=== PATIENT | male | born 1945 | race Caucasian/White ===

== ENCOUNTER 2017-08-30 21:44 | Inpatient (IN) | payer MEDICARE ==
[~2017-08-30] VITALS: Ht 170.2 cm; Wt 85.3 kg
--- OUTSIDE RECORDS SUMMARY | 2017-08-30 21:47 | XMS REPORT | Clinical Summary ---
Author Author MEGAN [facility] Address Unknown Phone Unavailable Care Team Providers Care Certified Juvenile Probation Officer Name Role Phone PCP Unavailable Allergies No Known Allergies Current Medications Prescription Sig. Disp. Refills Start End Date Status Date lisinopril Take 1 tablet (30 mg 30 tablet 11 06/29/19 06/29/19 Active (PRINIVIL,ZESTRIL) 30 MG total) by mouth daily. 18 19 tablet insulin detemir (LEVEMIR) Inject 0.3 mLs (30 Units 1 packet 0 Active 100 unit/mL (3 mL) InPn total) subcutaneously 18 injection nightly. Active Problems Problem Noted Date UTI (urinary tract infection) 06/25/2017 Altered mental status, unspecified altered mental status type 06/25/2017 Encounters Date Type Specialty Care Team Description 06/25/2017 [facility] Darrell Alexandre MD Altered mental status, - Encounter Tommy Lombardo MD unspecified altered 06/28/2017 mental status type (Primary Dx);Urinary tract infection with hematuria, site unspecified;Metabolic acidosis;Elevated blood pressure reading after 08/29/2016 Social History Tobacco Use Types Packs/Day Years Used Date Unknown If Ever Smoked Smokeless Tobacco: Current User Sex Assigned at Date Recorded Not on file Last Filed Vital Signs Vital Sign Reading Time Taken Blood Pressure 137/64 06/28/2017 8:00 AM VIDEO PRODUCTION COORDINATOR Pulse 84 06/28/2017 8:00 AM VIDEO PRODUCTION COORDINATOR Temperature 37.1 C (98.8 F) 06/28/2017 8:00 AM VIDEO PRODUCTION COORDINATOR Respiratory Rate 18 06/28/2017 8:00 AM VIDEO PRODUCTION COORDINATOR Oxygen Saturation 98% 06/28/2017 8:00 AM VIDEO PRODUCTION COORDINATOR Inhaled Oxygen - - Concentration Weight 77.1 kg (170 lb) 06/25/2017 7:49 AM VIDEO PRODUCTION COORDINATOR Height 170.2 cm (5' 7") 06/25/2017 7:49 AM VIDEO PRODUCTION COORDINATOR Body Mass Index 26.63 06/25/2017 7:49 AM VIDEO PRODUCTION COORDINATOR Plan of Treatment Not on file Results * RHYTHM STRIP - SCAN (07/01/2017 2:31 PM) * CBC with platelet count + automated diff (06/28/2017 7:21 AM) Only the most recent of 4 results within the time period is included. Component Value Ref Range WBC 4.4 4.0 - 10.0 K/ L RBC 3.43 (L) 4.20 - 5.80 M/ L Hemoglobin 10.3 (L) 13.0 - 16.8 GM/DL Hematocrit 30.5 (L) 40.0 - 50.0 % MCV 88.9 82.0 - 98.0 fL MCH 29.9 27.0 - 33.0 pg MCHC 33.6 32.0 - 36.0 GM/DL RDW 17.2 (H) 10.3 - 14.2 % Platelets 96 (L) 150 - 430 K/CU MM MPV 7.4 6.5 - 10.5 fL nRBC 0 0 - 0 /100 WBC % Neutros 59 % % Lymphs 22 % % Monos 12 % % Eos 6 % % Baso 1 % # Neutros 2.60 1.80 - 8.00 K/ L # Lymphs 1.00 (L) 1.48 - 4.50 K/ L # Monos 0.50 0.00 - 1.30 K/ L # Eos 0.20 0.00 - 0.50 K/ L # Baso 0.00 0.00 - 0.20 K/ L Specimen Performing Laboratory Blood [facility] [address] [place] [id number] * CBC with platelet count + automated diff (06/28/2017 7:21 AM) Only the most recent of 4 results within the time period is included. Specimen Performing Laboratory Blood Narrative The following orders were created for panel order CBC with platelet count + automated diff. Procedure Abnormality Status --------- - ------ CBC with platelet count ...[[id number]]AbnormalFinal result Please view results for these tests on the individual orders. * Basic Metabolic Panel (06/28/2017 7:21 AM) Only the most recent of 5 results within the time period is included. Component Value Ref Range Sodium 134 (L) 135 - 148 meq/L Potassium 3.6 3.6 - 5.5 meq/L Chloride 104 98 - 106 meq/L CO2 22 20 - 29 meq/L BUN 10 10 - 26 mg/dL Creatinine 0.80 0.50 - 1.20 mg/dL Glucose 239 (H) 70 - 110 mg/dL Calcium 8.1 (L) 8.5 - 10.5 mg/dL EGFR 96Comment: ESTIMATED GFR IS NOT ACCURATE mL/min/1.73 sq m CREATININE CLEARANCE IN PREDICTING GLOMERULAR FILTRATION RATE. ESTIMATED GFR IS NOT APPLICABLE FOR DIALYSIS PATIENTS. Specimen Performing Laboratory Blood [facility] [address] [place] [id number] * POC-Glucose meter (06/28/2017 5:55 AM) Only the most recent of 13 results within the time period is included. Component Value Ref Range POC-Glucose Meter 265 (H)Comment: TESTED AT [facility] [address] [facility] 70 - 110 mg/dL [facility] [address] Specimen Performing Laboratory [place] [address] * ED ECG Interpretation (06/26/2017 12:11 PM) Narrative Darrell Alexandre MD 06/26/2017 12:11 PM ECG/EKG Interpretation Date/Time: 06/25/2017 9:00 AM Performed by: DARRELL ALEXANDRE Authorized by: DARRELL ALEXANDRE The ECG was interpreted by ED physician. This ECG was not compared with previous ECG(s).The ECG is interpreted as sinus rhythm. Rate is normal rate. Heart rate is 93 BPM. Clinical Impression: non-specific ECGComments: NSR, NML AXIS, WIDE QRS, RBBB, LAFB * TSH/Free T4 If Indicated (06/26/2017 4:34 AM) Component Value Ref Range TSH 1.20 0.35 - 5.50 uIU/mL Specimen Performing Laboratory Blood [facility] [address] [place] [address] * Hemoglobin A1c (06/26/2017 4:34 AM) Component Value Ref Range Hemoglobin A1C 10.4 (H) 4.3 - 6.1 % Specimen Performing Laboratory [facility] [address] [place] [id number] * Lipid panel (06/26/2017 4:34 AM) Component Value Ref Range Triglycerides 92 mg/dL Cholesterol 156 mg/dL HDL 41 mg/dL LDL Calculated 97 mg/dL Specimen Performing Laboratory Blood [facility] [address] [place], [place] [id number] Narrative Triglyceride Reference Range: Low Risk <150 [id number] High Risk 200-499 Very High Risk>=500 Cholesterol Reference Range: Low Risk <200 [id number] High Risk>240 HDL Cholesterol Reference Range: Low Risk >=60 High Risk <40 LDL Cholesterol Reference Range: Optimal<100 Near [id number] [id number] Vvvt817-121 Very High >=190 Specimen slightly icteric * Urine culture (06/25/2017 9:51 AM) Component Value Ref Range Result Result 10-19,000 col/mL Beta-hemolytic streptococcus group B, by serological grouping (A) Specimen Performing Laboratory Urine - Urine, [facility] [address] [place] [address] Narrative >100,000 col/mL skin laura * Rapid drug screen, urine (06/25/2017 9:17 AM) Component Value Ref Range Barbiturate Screen Negative Negative Benzodiazepine Screen Negative Negative Cocaine (Metab.) Screen Negative Negative Methadone Screen Negative Negative Opiate Screen Negative Negative Cannabinoid Screen Negative Negative Amph/Methamph Screen Negative Negative Phencyclidine Screen Negative Negative Specimen Performing Laboratory Urine - Urine, [facility] [address] [address] [place] [address] Narrative DRUGCUTOFF CONC. Cocaine 300 ng/mL Vziwgrxpbnl24 ng/mL Htppwsfopwobap195 ng/mL Barbiturate 200 ng/mL Rulfaurkzmghe54 ng/mL Nzamgb047 ng/mL Methadone 300 ng/mL Amphetamine/ 1000 ng/mL Methamphetamine This assay provides an unconfirmed qualitative test result for the clinical management of patients in emergency situations. Chain of custody not maintained. Some vfgk-zll-egputjd medications, as well as adulterants, may cause inaccurate results. Clinical correlation should be applied. A more comprehensive drug screen or confirmation of a detected drug may be performed upon request. * Urinalysis w/Microscopic (06/25/2017 9:17 AM) Component Value Ref Range Color, UA Yellow Clarity, UA Cloudy Specific [place], UA 1.015 1.001 - 1.035 pH, UA 7.5 5.0 - 8.0 Protein, UA Trace (A) Negative Glucose, UA >=1000 mg/dL (A) Negative Ketones, UA Trace (A) Negative Bilirubin, UA Negative Negative Blood, UA Moderate (A) Negative Nitrite, UA Negative Negative Leukocytes, UA Small (A) Negative Urobilinogen, UA 0.2 0.2 - 1.0 mg/dL Bacteria, UA Many RBC, UA 10-20 /HPF WBC, UA 10-20 /HPF SQUAMOUS EPITHELIAL 5-10 /HPF Specimen Source Specimen Performing Laboratory Urine - Urine, Clean [facility] [address] [place] [address] * CT brain without IV contrast (06/25/2017 9:08 AM) Specimen Performing Laboratory GE RIS Narrative FINAL REPORT CT head without contrast 06/25/2017 9:12 AM CLINICAL HISTORY: confusion confusion TECHNIQUE: Axial noncontrast CT images through the head were obtained. This examination was performed according to our departmental dose optimization program, which includes automated exposure control, adjustment of the mA and/or kV according to patient size, and/or use of iterated reconstruction technique. COMPARISON: None available FINDINGS: There is no hemorrhage, extra-axial collection, mass, hydrocephalus, or midline shift. There is mild microvascular ischemia in the supratentorial white matter, with a right anterior striatocapsular infarct. There is atherosclerotic calcification of the intracranial arterial vasculature. There is generalized parenchymal volume loss. The visualized paranasal sinuses and mastoid air cells are well aerated. The skull is intact. IMPRESSION: No intracranial hemorrhage or mass effect. Chronic appearing microvascular and involutional changes. If concern for acute pathology persists, further evaluation with MRI is recommended. Signed: Mir Hernandez MD Report Verified Date/Time:06/25/2017 09:14:38 Reading Location: [facility] Radiology Reading Room Procedure Note Interface, External Ris In - 06/25/2017 9:16 AM VIDEO PRODUCTION COORDINATOR FINAL REPORT CT head without contrast 06/25/2017 9:12 AM CLINICAL HISTORY: confusion confusion TECHNIQUE: Axial noncontrast CT images through the head were obtained. This examination was performed according to our departmental dose optimization program, which includes automated exposure control, adjustment of the mA and/or kV according to patient size, and/or use of iterated reconstruction technique. COMPARISON: None available FINDINGS: There is no hemorrhage, extra-axial collection, mass, hydrocephalus, or midline shift. There is mild microvascular ischemia in the supratentorial white matter, with a right anterior striatocapsular infarct. There is atherosclerotic calcification of the intracranial arterial vasculature. There is generalized parenchymal volume loss. The visualized paranasal sinuses and mastoid air cells are well aerated. The skull is intact. IMPRESSION: No intracranial hemorrhage or mass effect. Chronic appearing microvascular and involutional changes. If concern for acute pathology persists, further evaluation with MRI is recommended. Signed: Mir Hernandez MD Report Verified Date/Time: 06/25/2017 09:14:38 Reading Location: [facility] Radiology Reading Room * XR chest 1 view portable / bedside (06/25/2017 8:06 AM) Specimen Performing Laboratory GE RIS Narrative FINAL REPORT Chest one view AP 06/25/2017 8:11 AM CLINICAL INDICATION: confusion COMPARISON: None available IMPRESSION: Cardiomediastinal contours are within normal limits. The central pulmonary vasculature is not engorged. The lungs are well aerated. Signed: Mir Hernandez MD Report Verified Date/Time:06/25/2017 08:11:55 Reading Location: [facility] Reading Room Procedure Note Interface, External Ris In - 06/25/2017 8:14 AM VIDEO PRODUCTION COORDINATOR FINAL REPORT Chest one view AP 06/25/2017 8:11 AM CLINICAL INDICATION: confusion COMPARISON: None available IMPRESSION: Cardiomediastinal contours are within normal limits. The central pulmonary vasculature is not engorged. The lungs are well aerated. Signed: Mir Hernandez MD Report Verified Date/Time: 06/25/2017 08:11:55 Reading Location: [facility] Radiology Reading Room * Troponin I (06/25/2017 8:00 AM) Component Value Ref Range Troponin I 0.03 0.00 - 0.15 ng/mL Specimen Performing Laboratory [facility] [address] [place] [address] Narrative Troponin I (TnI) levels must be interpreted in the context of the presenting symptoms and the clinical findings. Elevated TnI levels indicate myocardial damage, but are not specific for ischemic heart disease. Elevated TnI levels are seen in patients with other cardiac conditions (including myocarditis and congestive heart failure), and slight TnI elevations occur in patients with other conditions, including sepsis, renal failure, acidosis, acute neurological disease, and persistent tachyarrhythmia. * Creatine Kinase (CK), Total and MB (06/25/2017 8:00 AM) Component Value Ref Range Total CK 76 40 - 250 U/L CK-MB 2.3 0.0 - 4.9 ng/mL MB Relative Index 3.0 % Specimen Performing Laboratory [facility] [address] [place] [address] Narrative CK-MB Reference Range: <5 Normal 5-10 Borderline >10Abnormal * Ethanol (06/25/2017 8:00 AM) Component Value Ref Range Ethanol Lvl 38 (H) <=10 mg/dL Specimen Performing Laboratory [facility] [address] [place] [address] after 08/29/2016
--- OUTSIDE RECORDS SUMMARY | 2017-08-30 21:47 | XMS REPORT ---
Author Author [facility] Address Unknown Phone Unavailable Care Team Providers Care Activity Director Name Role Phone UNKNOWN, REFFERING PP Unavailable BOSS, MARIELENA Unavailable Unavailable SHAINA, PANCHITO Unavailable Unavailable Problems This patient has no known problems. Allergies, Adverse Reactions, Alerts This patient has no known allergies or adverse reactions. Medications This patient has no known medications. Results Test Description Test Time Test Comments Text Results Atomic Results Result Comments CBC W/PLT COUNT & AUTO DIFFERENTIAL 2017-06-28 08:47:00 WHITE BLOOD CELL COUNT (BEAKER) (test wdum=622) 4.4 K/ L 4.0-10.0 RED BLOOD CELL COUNT (BEAKER) (test fkwe=429) 3.43 M/ L 4.20-5.80 HEMOGLOBIN (BEAKER) (test tjvt=670) 10.3 GM/DL 13.0-16.8 HEMATOCRIT (BEAKER) (test bztd=846) 30.5 % 40.0-50.0 MEAN CORPUSCULAR VOLUME (BEAKER) (test hkjy=982) 88.9 fL 82.0-98.0 MEAN CORPUSCULAR HEMOGLOBIN (BEAKER) (test parl=155) 29.9 pg 27.0-33.0 MEAN CORPUSCULAR HEMOGLOBIN CONC (BEAKER) (test arzm=270) 33.6 GM/DL 32.0- 36.0 RED CELL DISTRIBUTION WIDTH (BEAKER) (test lvjy=397) 17.2 % 10.3-14.2 PLATELET COUNT (BEAKER) (test oolc=806) 96 K/CU MM 150-430 MEAN PLATELET VOLUME (BEAKER) (test ujxd=978) 7.4 fL 6.5-10.5 NUCLEATED RED BLOOD CELLS (BEAKER) (test gisq=106) 0 /100 WBC 0-0 NEUTROPHILS RELATIVE PERCENT (BEAKER) (test xnpt=401) 59 % LYMPHOCYTES RELATIVE PERCENT (BEAKER) (test kcit=790) 22 % MONOCYTES RELATIVE PERCENT (BEAKER) (test mnwm=778) 12 % EOSINOPHILS RELATIVE PERCENT (BEAKER) (test orem=925) 6 % BASOPHILS RELATIVE PERCENT (BEAKER) (test chpt=693) 1 % NEUTROPHILS ABSOLUTE COUNT (BEAKER) (test wogc=345) 2.60 K/ L 1.80-8.00 LYMPHOCYTES ABSOLUTE COUNT (BEAKER) (test pacg=788) 1.00 K/ L 1.48-4.50 MONOCYTES ABSOLUTE COUNT (BEAKER) (test difn=767) 0.50 K/ L 0.00-1.30 EOSINOPHILS ABSOLUTE COUNT (BEAKER) (test bqbc=457) 0.20 K/ L 0.00-0.50 BASOPHILS ABSOLUTE COUNT (BEAKER) (test peor=294) 0.00 K/ L 0.00-0.20 BASIC METABOLIC [id number] 07:49:00* Test Item Value Reference Range Comments SODIUM (BEAKER) (test knav=862) 134 meq/L 135-148 POTASSIUM (BEAKER) (test vims=108) 3.6 meq/L 3.6-5.5 CHLORIDE (BEAKER) (test efoi=643) 104 meq/L 98-106 CO2 (BEAKER) (test yfba=205) 22 meq/L 20-29 BLOOD UREA NITROGEN (BEAKER) (test ggdj=130) 10 mg/dL 10-26 CREATININE (BEAKER) (test duho=971) 0.80 mg/dL 0.50-1.20 GLUCOSE RANDOM (BEAKER) (test tppr=848) 239 mg/dL 70-110 CALCIUM (BEAKER) (test yvwx=141) 8.1 mg/dL 8.5-10.5 EGFR (BEAKER) (test cucm=1925) 96 mL/min/1.73 sq m ESTIMATED GFR IS NOT ACCURATE CREATININE CLEARANCE IN PREDICTING GLOMERULAR FILTRATION RATE. ESTIMATED GFR IS NOT APPLICABLE FOR DIALYSIS PATIENTS. POCT-GLUCOSE [id number] 06:00:00* Test Item Value Reference Range Comments POC-GLUCOSE METER (BEAKER) (test ahsn=7396) 265 mg/dL 70-110 TESTED AT [facility] [address] [place] [address] POCT-GLUCOSE [id number] 20:57:00* Test Item Value Reference Range Comments POC-GLUCOSE METER (BEAKER) (test kewn=9444) 365 mg/dL 70-110 Notified ZEESHAN ANDERSEN/ TESTED AT [facility] [address] [facility] [address] POCT-GLUCOSE [id number] 16:59:00* Test Item Value Reference Range Comments POC-GLUCOSE METER (BEAKER) (test xaas=1532) 374 mg/dL 70-110 TESTED AT [facility] [address] [facility] [address] URINE [id number] 12:44:00* Test Item Value Reference Range Comments CULTURE (BEAKER) (test nbfx=2301) 10-19,000 col/mL Beta-hemolytic streptococcus group B, by serological grouping >100,000 col/mL skin floraPOCT-GLUCOSE [id number] 11:54:00* Test Item Value Reference Range Comments POC-GLUCOSE METER (BEAKER) (test geuo=2712) 265 mg/dL 70-110 TESTED AT [facility] [address] [facility] [address] BASIC METABOLIC [id number] 07:51:00* Test Item Value Reference Range Comments SODIUM (BEAKER) (test mbwq=882) 135 meq/L 135-148 POTASSIUM (BEAKER) (test wgty=217) 3.5 meq/L 3.6-5.5 CHLORIDE (BEAKER) (test gnlh=619) 104 meq/L 98-106 CO2 (BEAKER) (test kwzw=911) 22 meq/L 20-29 BLOOD UREA NITROGEN (BEAKER) (test zzwp=967) 10 mg/dL 10-26 CREATININE (BEAKER) (test ogbg=556) 0.80 mg/dL 0.50-1.20 GLUCOSE RANDOM (BEAKER) (test gppe=337) 274 mg/dL 70-110 CALCIUM (BEAKER) (test hjut=196) 8.3 mg/dL 8.5-10.5 EGFR (BEAKER) (test qpod=6525) 96 mL/min/1.73 sq m ESTIMATED GFR IS NOT ACCURATE CREATININE CLEARANCE IN PREDICTING GLOMERULAR FILTRATION RATE. ESTIMATED GFR IS NOT APPLICABLE FOR DIALYSIS PATIENTS. Specimen slightly ictericCBC W/PLT COUNT & AUTO [id number] 07:43:00 * Test Item Value Reference Range Comments WHITE BLOOD CELL COUNT (BEAKER) (test pqya=316) 4.4 K/ L 4.0-10.0 RED BLOOD CELL COUNT (BEAKER) (test ozgb=019) 3.52 M/ L 4.20-5.80 HEMOGLOBIN (BEAKER) (test arud=493) 10.7 GM/DL 13.0-16.8 HEMATOCRIT (BEAKER) (test mzbs=969) 31.5 % 40.0-50.0 MEAN CORPUSCULAR VOLUME (BEAKER) (test erly=645) 89.5 fL 82.0-98.0 MEAN CORPUSCULAR HEMOGLOBIN (BEAKER) (test awlx=710) 30.4 pg 27.0-33.0 MEAN CORPUSCULAR HEMOGLOBIN CONC (BEAKER) (test bnmv=750) 33.9 GM/DL 32.0- 36.0 RED CELL DISTRIBUTION WIDTH (BEAKER) (test zvze=226) 16.8 % 10.3-14.2 PLATELET COUNT (BEAKER) (test axnr=029) 86 K/CU MM 150-430 MEAN PLATELET VOLUME (BEAKER) (test jkwi=994) 7.9 fL 6.5-10.5 NUCLEATED RED BLOOD CELLS (BEAKER) (test csuo=217) 0 /100 WBC 0-0 NEUTROPHILS RELATIVE PERCENT (BEAKER) (test moml=157) 63 % LYMPHOCYTES RELATIVE PERCENT (BEAKER) (test dbob=937) 19 % MONOCYTES RELATIVE PERCENT (BEAKER) (test ystd=866) 12 % EOSINOPHILS RELATIVE PERCENT (BEAKER) (test nizp=937) 6 % BASOPHILS RELATIVE PERCENT (BEAKER) (test jbxv=920) 1 % NEUTROPHILS ABSOLUTE COUNT (BEAKER) (test qizc=838) 2.80 K/ L 1.80-8.00 LYMPHOCYTES ABSOLUTE COUNT (BEAKER) (test yfwe=739) 0.90 K/ L 1.48-4.50 MONOCYTES ABSOLUTE COUNT (BEAKER) (test pnaf=503) 0.50 K/ L 0.00-1.30 EOSINOPHILS ABSOLUTE COUNT (BEAKER) (test jpce=790) 0.30 K/ L 0.00-0.50 BASOPHILS ABSOLUTE COUNT (BEAKER) (test etko=566) 0.00 K/ L 0.00-0.20 POCT-GLUCOSE [id number] 05:58:00* Test Item Value Reference Range Comments POC-GLUCOSE METER (BEAKER) (test yayf=1394) 273 mg/dL 70-110 TESTED AT [facility] [address] [facility] [address] POCT-GLUCOSE [id number] 21:02:00* Test Item Value Reference Range Comments POC-GLUCOSE METER (BEAKER) (test wxxq=8150) 404 mg/dL 70-110 Notified ZEESHAN ANDERSEN/ TESTED AT [address] [address] POCT-GLUCOSE [id number] 16:50:00* Test Item Value Reference Range Comments POC-GLUCOSE METER (BEAKER) (test egpk=0268) 409 mg/dL 70-110 TESTED AT [address] [address] POCT-GLUCOSE [id number] 12:28:00* Test Item Value Reference Range Comments POC-GLUCOSE METER (BEAKER) (test tmug=0914) 305 mg/dL 70-110 TESTED AT [address] [address] POCT-GLUCOSE [id number] 06:21:00* Test Item Value Reference Range Comments POC-GLUCOSE METER (BEAKER) (test dlri=3248) 275 mg/dL 70-110 TESTED AT [address] [address] TSH/FREE T4 IF [id number] 05:23:00* Test Item Value Reference Range Comments THYROID STIMULATING HORMONE (BEAKER) (test utes=010) 1.20 uIU/mL 0.35-5.50 LIPID [id number] 05:04:00* Test Item Value Reference Range Comments TRIGLYCERIDES (BEAKER) (test ufrn=637) 92 mg/dL CHOLESTEROL (BEAKER) (test wwsw=028) 156 mg/dL HDL CHOLESTEROL (BEAKER) (test unly=981) 41 mg/dL LDL CHOLESTEROL CALCULATED (AKER) (test lhsx=472) 97 mg/dL Triglyceride Reference Range: Low Risk <150 Borderline 150-199 High Risk 200-499 Very High Risk >=500Cholesterol Reference Range: Low Risk <200 Borderline 200-239 High Risk >240HDL Cholesterol Reference Range: Low Risk >=60 High Risk <40LDL Cholesterol Reference Range: Optimal <100 Near Optimal 100-129 Borderline 130-159 High 160-189 Very High >=190 Specimen slightly ictericBASIC METABOLIC [id number] 05:04:00* Test Item Value Reference Range Comments SODIUM (BEAKER) (test zttk=148) 136 meq/L 135-148 POTASSIUM (BEAKER) (test qdsk=881) 3.4 meq/L 3.6-5.5 CHLORIDE (BEAKER) (test hmyo=372) 104 meq/L 98-106 CO2 (BEAKER) (test icba=771) 21 meq/L 20-29 BLOOD UREA NITROGEN (BEAKER) (test cbtr=938) 10 mg/dL 10-26 CREATININE (BEAKER) (test ctim=325) 0.90 mg/dL 0.50-1.20 GLUCOSE RANDOM (BEAKER) (test tlxi=083) 280 mg/dL 70-110 CALCIUM (BEAKER) (test qqhl=739) 8.2 mg/dL 8.5-10.5 EGFR (BEAKER) (test geyi=2362) 83 mL/min/1.73 sq m ESTIMATED GFR IS NOT ACCURATE CREATININE CLEARANCE IN PREDICTING GLOMERULAR FILTRATION RATE. ESTIMATED GFR IS NOT APPLICABLE FOR DIALYSIS PATIENTS. Specimen slightly ictericHEMOGLOBIN [id number] 04:56:00* Test Item Value Reference Range Comments HEMOGLOBIN A1C (BEAKER) (test zecu=048) 10.4 % 4.3-6.1 CBC W/PLT COUNT & AUTO [id number] 04:44:00* Test Item Value Reference Range Comments WHITE BLOOD CELL COUNT (BEAKER) (test lwxj=503) 4.7 K/ L 4.0-10.0 RED BLOOD CELL COUNT (BEAKER) (test wszb=557) 3.57 M/ L 4.20-5.80 HEMOGLOBIN (BEAKER) (test gfpf=130) 10.8 GM/DL 13.0-16.8 HEMATOCRIT (BEAKER) (test mdsm=078) 32.1 % 40.0-50.0 MEAN CORPUSCULAR VOLUME (BEAKER) (test omnf=727) 90.0 fL 82.0-98.0 MEAN CORPUSCULAR HEMOGLOBIN (BEAKER) (test puma=857) 30.2 pg 27.0-33.0 MEAN CORPUSCULAR HEMOGLOBIN CONC (BEAKER) (test pzbd=598) 33.5 GM/DL 32.0- 36.0 RED CELL DISTRIBUTION WIDTH (BEAKER) (test ifiu=606) 16.5 % 10.3-14.2 PLATELET COUNT (BEAKER) (test yujm=476) 86 K/CU MM 150-430 MEAN PLATELET VOLUME (BEAKER) (test xakg=864) 8.2 fL 6.5-10.5 NUCLEATED RED BLOOD CELLS (BEAKER) (test olel=036) 0 /100 WBC 0-0 NEUTROPHILS RELATIVE PERCENT (BEAKER) (test wpuf=661) 62 % LYMPHOCYTES RELATIVE PERCENT (BEAKER) (test vxey=515) 20 % MONOCYTES RELATIVE PERCENT (BEAKER) (test mkae=158) 11 % EOSINOPHILS RELATIVE PERCENT (BEAKER) (test ecas=458) 6 % BASOPHILS RELATIVE PERCENT (BEAKER) (test xnmr=516) 1 % NEUTROPHILS ABSOLUTE COUNT (BEAKER) (test jarx=535) 3.00 K/ L 1.80-8.00 LYMPHOCYTES ABSOLUTE COUNT (BEAKER) (test zlwn=819) 1.00 K/ L 1.48-4.50 MONOCYTES ABSOLUTE COUNT (BEAKER) (test rvia=059) 0.50 K/ L 0.00-1.30 EOSINOPHILS ABSOLUTE COUNT (BEAKER) (test jlwt=113) 0.30 K/ L 0.00-0.50 BASOPHILS ABSOLUTE COUNT (BEAKER) (test glso=745) 0.00 K/ L 0.00-0.20 POCT-GLUCOSE [id number] 20:54:00* Test Item Value Reference Range Comments POC-GLUCOSE METER (BEAKER) (test ynug=9211) 399 mg/dL 70-110 TESTED AT [address] [address] POCT-GLUCOSE [id number] 16:42:00* Test Item Value Reference Range Comments POC-GLUCOSE METER (BEAKER) (test vntu=3842) 330 mg/dL 70-110 TESTED AT [address] [address] BASIC METABOLIC [id number] 11:24:00* Test Item Value Reference Range Comments SODIUM (BEAKER) (test ujac=826) 133 meq/L 135-148 POTASSIUM (BEAKER) (test elno=898) 3.6 meq/L 3.6-5.5 CHLORIDE (BEAKER) (test xhqx=196) 103 meq/L 98-106 CO2 (BEAKER) (test mvkl=103) 21 meq/L 20-29 BLOOD UREA NITROGEN (BEAKER) (test gjik=735) 10 mg/dL 10-26 CREATININE (BEAKER) (test kyie=099) 0.90 mg/dL 0.50-1.20 GLUCOSE RANDOM (BEAKER) (test sacy=670) 342 mg/dL 70-110 CALCIUM (BEAKER) (test ukxk=325) 8.2 mg/dL 8.5-10.5 EGFR (BEAKER) (test egrd=4598) mL/min/1.73 sq m INSUFFICIENT CLINICAL DATA TO CALCULATE ESTIMATED GFR. POCT-GLUCOSE [id number] 10:49:00* Test Item Value Reference Range Comments POC-GLUCOSE METER (BEAKER) (test plao=7560) 340 mg/dL 70-110 TESTED AT [facility] [address] [place] [address] RAPID DRUG SCREEN, [id number] 10:00:00* Test Item Value Reference Range Comments BARBITURATE URINE (BEAKER) (test tzoc=492) Negative Negative BENZODIAZEPINE SCREEN URINE (BEAKER) (test labl=778) Negative Negative COCAINE (METAB.) SCREEN (BEAKER) (test yqos=2113) Negative Negative METHADONE SCREEN (BEAKER) (test lmfm=7285) Negative Negative OPIATE SCREEN URINE (BEAKER) (test vqbo=802) Negative Negative CANNABINOID SCREEN URINE (BEAKER) (test ecix=501) Negative Negative AMPH/METHAMPH SCREEN (BEAKER) (test qnml=1476) Negative Negative PHENCYCLIDINE SCREEN URINE (BEAKER) (test zgyp=221) Negative Negative DRUG CUTOFF CONC.Cocaine 300 ng/mL Cannabinoid 50 ng/mLBenzodiazepine 200 ng/mLBarbiturate 200 ng/ mLPhencyclidine 25 ng/mLOpiate 300 ng/mLMethadone 300 ng/mLAmphetamine/ 1000 ng/mL MethamphetamineThis assay provides an unconfirmed qualitative test result for the clinical management of patients in emergency situations. Chain of custody not maintained. Some over-the -counter medications, as well as adulterants, may cause inaccurate results. Clinical correlation should be applied. A more comprehensive drug screen or confirmation of a detected drug may be performed upon request.URINALYSIS W/ [id number] 09:42:00* Test Item Value Reference Range Comments COLOR (BEAKER) (test mqyi=599) Yellow CLARITY (BEAKER) (test rdam=799) Cloudy SPECIFIC GRAVITY UA (BEAKER) (test txgr=531) 1.015 1.001-1.035 PH UA (BEAKER) (test iisr=816) 7.5 5.0-8.0 PROTEIN UA (BEAKER) (test hhgq=429) Trace Negative GLUCOSE UA (BEAKER) (test agjc=035) >=1000 mg/dL Negative KETONES UA (BEAKER) (test xdhk=903) Trace Negative BILIRUBIN UA (BEAKER) (test viij=536) Negative Negative BLOOD UA (BEAKER) (test vfpy=355) Moderate Negative NITRITE UA (BEAKER) (test flln=968) Negative Negative LEUKOCYTE ESTERASE UA (BEAKER) (test fcal=359) Small Negative UROBILINOGEN UA (BEAKER) (test oznj=772) 0.2 mg/dL 0.2-1.0 BACTERIA (BEAKER) (test poak=819) Many RBC UA-MANUAL (BEAKER) (test yrpu=7276) 10-20 /HPF WBC UA-MANUAL (BEAKER) (test vzbu=2851) 10-20 /HPF SQUAMOUS EPITHELIAL MANUAL (BEAKER) (test qylv=5263) 5-10 /HPF SOURCE(BEAKER) (test qmqw=1040) TROPONIN [id number] 09:17:00* Test Item Value Reference Range Comments TROPONIN I (BEAKER) (test qmbo=462) 0.03 ng/mL 0.00-0.15 Troponin I (TnI) levels must be interpreted [...] failure, acidosis, acute neurological disease, and persistent tachyarrhythmia.CT, BRAIN, WITHOUT [id number] 09 :14:00Reason for exam:->confusionFINAL REPORT CT head without contrast 06/25/2017 9:12 AM CLINICAL HISTORY: confusionconfusion TECHNIQUE : Axial noncontrast CT images through the head [...] involutional changes. If concern for acute pathology persists , further evaluation with MRI is recommended. Signed: Mir Hernandez Verified Date/Time: 06/25/2017 09:14:38 Reading Location: [facility] Radiology Reading Room Electronically signed by: MIR HERNANDEZ M.D. on 09:14 AM CREATINE KINASE (CK), TOTAL AND [id number] 09:09:00* Test Item Value Reference Range Comments CREATINE KINASE TOTAL (BEAKER) (test jfpx=247) 76 U/L 40-250 CREATINE KINASE-MB (BEAKER) (test gulq=273) 2.3 ng/mL 0.0-4.9 CREATINE KINASE-MB INDEX (BEAKER) (test fsut=383) 3.0 % CK-MB Reference Range:<5 Normal5-10 Borderline>10 AbnormalBASIC METABOLIC [id number] 09:02:00* Test Item Value Reference Range Comments SODIUM (BEAKER) (test ridf=068) 132 meq/L 135-148 POTASSIUM (BEAKER) (test bkvl=286) 3.7 meq/L 3.6-5.5 CHLORIDE (BEAKER) (test pkhz=886) 99 meq/L 98-106 CO2 (BEAKER) (test uzmd=574) 18 meq/L 20-29 BLOOD UREA NITROGEN (BEAKER) (test lpzl=777) 11 mg/dL 10-26 CREATININE (BEAKER) (test wdof=060) 1.00 mg/dL 0.50-1.20 GLUCOSE RANDOM (BEAKER) (test zlro=255) 456 mg/dL 70-110 CALCIUM (BEAKER) (test dvph=050) 8.7 mg/dL 8.5-10.5 EGFR (BEAKER) (test cdvw=4689) mL/min/1.73 sq m INSUFFICIENT CLINICAL DATA TO CALCULATE ESTIMATED GFR. [id number] 08:48:00* Test Item Value Reference Range Comments ETHANOL (BEAKER) (test hrgs=267) 38 mg/dL <=10 CBC W/PLT COUNT & AUTO [id number] 08:16:00* Test Item Value Reference Range Comments WHITE BLOOD CELL COUNT (BEAKER) (test umqq=727) 4.8 K/ L 4.0-10.0 RED BLOOD CELL COUNT (BEAKER) (test vdwc=418) 3.56 M/ L 4.20-5.80 HEMOGLOBIN (BEAKER) (test icij=012) 10.8 GM/DL 13.0-16.8 HEMATOCRIT (BEAKER) (test ywpt=054) 31.8 % 40.0-50.0 MEAN CORPUSCULAR VOLUME (BEAKER) (test qtef=834) 89.3 fL 82.0-98.0 MEAN CORPUSCULAR HEMOGLOBIN (BEAKER) (test rpgv=033) 30.2 pg 27.0-33.0 MEAN CORPUSCULAR HEMOGLOBIN CONC (BEAKER) (test ezih=887) 33.8 GM/DL 32.0- 36.0 RED CELL DISTRIBUTION WIDTH (BEAKER) (test qrkf=976) 16.7 % 10.3-14.2 PLATELET COUNT (BEAKER) (test xkak=131) 93 K/CU MM 150-430 MEAN PLATELET VOLUME (BEAKER) (test njcc=964) 8.9 fL 6.5-10.5 NUCLEATED RED BLOOD CELLS (BEAKER) (test anvt=934) 0 /100 WBC 0-0 NEUTROPHILS RELATIVE PERCENT (BEAKER) (test mdmo=872) 70 % LYMPHOCYTES RELATIVE PERCENT (BEAKER) (test texo=082) 16 % MONOCYTES RELATIVE PERCENT (BEAKER) (test psgl=162) 9 % EOSINOPHILS RELATIVE PERCENT (BEAKER) (test xlkp=355) 4 % BASOPHILS RELATIVE PERCENT (BEAKER) (test xxjp=691) 1 % NEUTROPHILS ABSOLUTE COUNT (BEAKER) (test aatc=678) 3.40 K/ L 1.80-8.00 LYMPHOCYTES ABSOLUTE COUNT (BEAKER) (test luia=819) 0.80 K/ L 1.48-4.50 MONOCYTES ABSOLUTE COUNT (BEAKER) (test qnni=041) 0.40 K/ L 0.00-1.30 EOSINOPHILS ABSOLUTE COUNT (BEAKER) (test eesh=792) 0.20 K/ L 0.00-0.50 BASOPHILS ABSOLUTE COUNT (BEAKER) (test mdut=443) 0.00 K/ L 0.00-0.20 RAD, CHEST, 1 VIEW, NON [id number] 08:11:00Reason for exam:-> confusionShould this be performed at the bedside?->NoFINAL REPORT Chest one view AP 06/25/2017 8:11 AM CLINICAL INDICATION: confusion COMPARISON: None available IMPRESSION: Cardiomediastinal contours are within normal limits. The central pulmonary vasculature is not engorged. The lungs are well aerated. Signed: Mir Hernandez Verified Date/Time: 06/25/2017 08:11:55 Reading Location: [facility] Radiology Reading Room - GLUCOSE [id number] 07:46:00* Test Item Value Reference Range Comments POC-GLUCOSE METER (BEAKER) (test mjnt=0370) 417 mg/dL 70-110 TESTED AT [facility] [address] [facility] [address] POC Glucose, [id number] 15:51:00* Test Item Value Reference Range Comments POC Glucose (test code=POCGLUC) 349 mg/dL 70-115 Notify RN or MDIf you consider your patient critically ill, the [facility] Accu-Chek InformII metershould not be used for Glucose determinations.Draw a venous Glucose and send to the Main Lab for Analysis. Urinalysis [id number] 15:50:00* Test Item Value Reference Range Comments Color (test code=COLOR) Yellow Yellow,Straw,Pl yellow Clarity (test code=CLAR) Cloudy Clear Specific [place] (test code=SPGR) 1.010 1.001-1.035 pH (test code=PH) 7.0 5.0-9.0 Ketone (test code=KET) 5 mg/dL Negative Glucose (test code=GLUCUR) 1000 mg/dL Negative Protein (test code=PROT) 25 mg/dL Negative Bilirubin (test code=BILI) Negative mg/dL Negative Occult Blood (test code=UDOB) Mod to Large Negative Urobilinogen (test code=UROB) 0.2 mg/dL 0.2-1.0 Nitrite (test code=NIT) Negative Negative Leuk Esterase (test code=LEUK) Large Negative Micros Exam (test code=MEXAM) Indicated Epithelial Cells (test code=EPI) 0-2 /LPF 0-30 WBC, Urine (test code=UWBC) >182 /HPF 0-5 RBC, Urine (test code=URBC) 3-5 /HPF 0-5 Mucous, Urine (test code=UMUC) Few /HPF Bacteria (test code=BACT) Many /HPF CK [id number] 15:20:00* Test Item Value Reference Range Comments CK (test code=CK) 123 U/L 39-308 Comprehensive Metabolic [id number] 15:20:00* Test Item Value Reference Range Comments Sodium (test code=NA) 130 mmol/L 135-145 Potassium (test code=K) 4.0 mmol/L 3.5-5.1 Chloride (test code=CL) 93 mmol/L 98-105 Carbon Dioxide (test code=CO2) 21 mmol/L 22-29 Glucose (test code=GLU) 464 mg/dL 70-115 VERIFIED BY REPEAT TESTINGREAD BACK LAB VALUESD JOYA BYERS 15:19 03/11/2017 ./OG Blood Urea Nitrogen (test code=BUN) 16 mg/dL 8-23 Creatinine (test code=CREAT) 0.9 mg/dL 0.7-1.2 Calcium (test code=CA) 8.5 mg/dL 8.3-10.5 Prot Total (test code=TP) 8.1 g/dL 6.4-8.3 Albumin (test code=ALB) 2.9 g/dL 3.5-5.2 A/G Ratio (test code=AGRATIO) 0.6 Ratio Globulin (test code=GLOB) 5.2 2.9-3.1 Bili Total (test code=TBIL) 1.9 mg/dL 0.1-0.9 Alk Phos (test code=APHOS) 87 U/L 40-129 AST (test code=AST) 58 U/L 1-40 ALT (test code=ALT) 30 U/L 1-41 BUN/Creatinine Ratio (test code=BCRATIO) 17.8 Anion Gap (test code=AGAP) 16 mmol/L 7-16 Estimated GFR (test code=GFR) >60 mL/min/1.73m2 eGFR (estimated Glomerular Filtration Rate) is an estimated value,calculated from the patient's serum creatinine using the MDRD equation.It is NOT the patient's actual GFR. The eGFR provides a more clinicallyuseful measure of kidney disease than serum creatinine alone.This calculation takes sex and race into account, if the informationis provided. If the race is not provided, and the patient isAfrican- [place], multiply by 1.212. If sex is not provided, and thepatient is female, multiply by 0.742. Results for patients <18 years ofage have not been validated by the MDRD study and should be interpretedwith caution.eGFR Result Interpretation:eGFR > or=60 is in the Normal RangeeGFR < 60 may mean kidney diseaseeGFR < 15 may mean kidney failureRanges recommended by the National Kidney Foundation,http://nkdep.nih.gov CK [id number] 15:20:00* Test Item Value Reference Range Comments CK (test code=CK) 123 U/L 39-308 CKMB (test code=CKMB) 4.6 ng/mL 0.0-4.9 CKMB% (test code=CKMBP) 3.7 % 0.0-3.4 Troponin [id number] 15:20:00* Test Item Value Reference Range Comments Troponin T (test code=GINA) <0.010 ng/mL 0.000-0.090 CBC with [id number] 14:56:00* Test Item Value Reference Range Comments WBC (test code=WBC) 5.0 K/cumm 4.4-10.5 RBC (test code=RBC) 3.46 M/cumm 4.10-5.70 Hemoglobin (test code=HGB) 10.6 gm/dL 13.4-17.4 Hematocrit (test code=HCT) 33.9 % 38.7-52.0 MCV (test code=MCV) 97.7 fL 80-100 MCH (test code=MCH) 30.5 pg 27.0-32.5 MCHC (test code=MCHC) 31.2 g/dL 32.0-37.5 RDW (test code=RDW) 14.8 % 11.5-14.5 Platelet Count (test code=PLTCT) 99 K/cumm 140-440 MPV (test code=MPV) 9.0 fL Diff Method (test code=DIFFM) Auto Neutrophil (test code=NEUT) 79.8 % 36-70 Lymphocyte (test code=LYMPH) 10.5 % 12-44 Monocyte (test code=MONO) 7.6 % 0-11 Eosinophil (test code=EOS) 1.6 % 0-7 Basophil (test code=BASO) 0.6 % 0-2 Neutro Abs (test code=ANEUT) 4.0 K/cumm 1.6-7.4 Lymph Abs (test code=ALYMPH) 0.5 K/cumm 0.5-4.6 Luce Abs (test code=AMONO) 0.4 K/cumm 0.0-1.2 Eos Abs (test code=AEOS) 0.08 K/cumm 0.00-0.74 Baso Abs (test code=ABASO) 0.0 K/cumm 0.00-0.21 POC Glucose, [id number] 14:45:00* Test Item Value Reference Range Comments POC Glucose (test code=POCGLUC) 418 mg/dL 70-115 Notify RN or MD XR CHEST 1 [id number] 14:04:48EXAM: CHEST ONE VIEWINDICATION: Altered mental statusCOMPARISON: None availableTECHNIQUE: AP view of the chest.FINDINGS : The cardiomediastinal silhouette is normal. The lungs are clearbilaterally. No pneumothorax or pleural effusion is identified. Theosseous structures are unremarkable.IMPRESSION: No acute cardiopulmonary process.LOCATION: R16CT HEAD OR BRAIN WO [id number] 13:52:54EXAM: CT BRAIN WITHOUT CONTRASTINDICATION : Altered mental statusCOMPARISON: None availableTECHNIQUE: Routine axial CT images of the brain were obtained.IV contrast: None.DLP: 954.3 mGy-cmFINDINGS: No intra-axial or extra-axial fluid collections are identified. No acutehemorrhage.There are areas of low attenuation within the supratentorial whitematter consistent with chronic microvascular ischemic changes. 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 There is prominence ofthe sulci consistent with diffuse cerebral volume loss. No midline shiftor mass effect. The basal cisterns are patent. The posterior fossa andfourth ventricle are normal.The paranasal sinuses and mastoid air cells are clear. No calvariallesions. Skull base is intact. Orbits and globes are unremarkable.IMPRESSION:1. No acute intracranial abnormality. No intracranial hemorrhage.2. Chronic microvascular ischemic changes and diffuse cerebral volumeloss.LOCATION: [id number] Gas+Lytes+Glu+Ca+Hgb+Hct+[id number] 13:32:00* Test Item Value Reference Range Comments pH, Blood Gas (test code=BGPH) 7.440 pH Units 7.35-7.45 pCO2 (test code=PCO2) 31.0 mm Hg 35-45 pO2 (test code=PO2) 91.9 mm Hg 80-100 Bicarbonate (test code=HCO3) 21.1 mmol/L 22.0-26.0 Base Excess (test code=BE) -2.3 mmol/L O2 Saturation (test code=O2SAT) 97.9 % 80.0-100.0 Sodium, Blood Gas (test code=BGNA) 133 mmol/L 135-145 Potassium, Blood Gas (test code=BGK) 4.3 mmol/L 3.5-4.5 Chloride, Blood Gas (test code=BGCL) 102 mmol/L 98-105 Calcium, Ionized, Blood Gas (test code=BGCAI) 1.15 mmol/L 1.00-1.50 Glucose, Blood Gas (test code=BGGLU) 450 mg/dL 75-115 tHB (test code=RTHB) 11.8 gm/dL 12.2-17.4 Hematocrit, Blood Gas (test code=BGHCT) 36.2 % 34.0-52.0 O2Hb (test code=RO2HB) 95 80-100 Carboxyhemoglobin (test code=CARHGB) 2.1 % 0.0-20.0 Methemoglobin (test code=METHGB) 0.7 % 0.0-20.0 FIO2 % (test code=FIO2) 21 % Patient Temperature (test code=PTTEMP) 37.0 Degrees Celcius Comment (test code=COMMENT) [email or web address] Puncture Site (test code=PUNSITE) Radial. L Drawing Tech ID (test code=DRAWTECH) smani iPAP (test code=IPAP) 0 cmH2O Respiratory Rate (test code=RESP RATE) 0 Lactic Acid, Blood Gas (test code=BGLA) 2.4 mmol/L
[2017-08-30] MEDS ORDERED: HALOPERIDOL LACTATE 5 MG/ML VIAL IV ONE (22:30)
[2017-08-30] MEDS ORDERED: ASPIRIN 81 MG CHEW TAB PO ONE (22:30)
[2017-08-30 22:45] LABS: BASOPHILS # (AUTO) 0.1 (0.0-0.1); EOSINOPHILS # (AUTO) 0.3 (0.0-0.4); EOSINOPHILS % 3.7 % (0.0-6.0); HEMATOCRIT 28.6 % (38.2-49.6); HEMOGLOBIN 9.7 g/dL (14.0-18.0); LYMPHOCYTES # (AUTO) 1.4 (1.0-3.2); LYMPHOCYTES % 19.9 % (18.0-39.1); MEAN CORPUSCULAR HEMOGLOBIN 31.2 pg (28-32); MEAN CORPUSCULAR HGB CONC 33.9 g/dL (31-35); MONOCYTES # (AUTO) 0.7 (0.2-0.8); MONOCYTES % 10.2 % (4.4-11.3); NEUTROPHILS # (AUTO) 4.6 (2.1-6.9); NEUTROPHILS % 64.9 % (38.7-80.0); PLATELET COUNT 116 x10e3/uL (140-360); RED BLOOD COUNT 3.11 x10e6/uL (4.3-5.7); RED CELL DISTRIBUTION WIDTH 16.3 % (11.7-14.4)
[2017-08-30 22:55] LABS: INR 1.48; PARTIAL THROMBOPLASTIN TIME 38.4 seconds (23.8-35.5); PROTHROMBIN TIME 16.8 seconds (11.9-14.5)
[2017-08-30 23:04] LABS: ALANINE AMINOTRANSFERASE 22 IU/L (0-55); ALBUMIN 2.4 g/dL (3.5-5.0); ALBUMIN/GLOBULIN RATIO 0.4 (0.8-2.0); ALKALINE PHOSPHATASE 72 IU/L (40-150); ANION GAP 12.5 mmol/L (8-16); BLOOD UREA NITROGEN 11 mg/dL (7-26); BUN/CREATININE RATIO 13 (6-25); CALCIUM 8.5 mg/dL (8.4-10.2); CARBON DIOXIDE 23 mmol/L (22-29); CHLORIDE 99 mmol/L (98-107); CREATINE KINASE 97 IU/L (30-200); CREATININE, SERUM 0.82 mg/dL (0.72-1.25); EST GLOMERULAR FILTRATION RATE > 60 ML/MIN (60-); GLUCOSE 142 mg/dL (74-118); POTASSIUM 3.5 mmol/L (3.5-5.1); SODIUM 131 mmol/L (136-145)
--- NOTE | 2017-08-30 23:33 | Diagnostic Imaging Report ---
EXAM: CHEST SINGLE (PORTABLE), AP 1 view INDICATION: Chest pain COMPARISON: None FINDINGS: LINES/TUBES: None LUNGS: No consolidations or edema. PLEURA: No effusions or pneumothorax. HEART AND MEDIASTINUM: Normal size and contour. BONES AND SOFT TISSUES: No acute findings. IMPRESSION: No acute thoracic abnormality. Signed by: Dr. Mandi Escalera M.D. on 08/30/2017 11:29 PM
[2017-08-31] MEDS ORDERED: ONDANSETRON HCL INJ 2 MG/ML VIAL IV PRN (00:30)
[2017-08-31] MEDS ORDERED: NITROGLYCERIN 0.4 MG SUBL SL PRN (00:30)
[2017-08-31] MEDS ORDERED: MULTIVITAMINS- 12 INJECTION 10 ML, FOLIC ACID MDV 5 MG, THIAMINE HCL INJ 100 MG in SODI... IV ONE (00:30)
[2017-08-31] MEDS ORDERED: LORAZEPAM INJ 2 MG/ML VIAL IV ONE (00:30)
[2017-08-31] MEDS ORDERED: THIAMINE HCL INJ 100 MG/ML 2ML VIAL ONE (00:35)
[2017-08-31] MEDS ORDERED: SODIUM CHLORIDE 0.9% 1000ML 1,000 ML ONE (00:36)
[2017-08-31] MEDS ORDERED: FOLIC ACID 5 MG/ML VIAL ONE (00:36)
[2017-08-31] MEDS ORDERED: MULTIVITAMINS INJECTION ONE (00:36)
--- OUTSIDE RECORDS SUMMARY | 2017-08-31 00:45 | XMS REPORT | Clinical Summary ---
Author Author MEGAN [facility] Address Unknown Phone Unavailable Care Team Providers Care Shipping Receiving Manager Name Role Phone PCP Unavailable Allergies No [...] Date Type Specialty Care Team Description 06/25/2017 [facility] General Internal Medicine Darrell Alexandre MD Altered mental status, - Encounter Tommy Lombardo MD unspecified altered 06/28/2017 mental status type (Primary Dx);Urinary tract infection with hematuria, site unspecified;Metabolic acidosis;Elevated blood pressure reading after 08/30/2016 Social History Tobacco Use Types Packs/Day Years Used Date Unknown If Ever Smoked Smokeless Tobacco: Current User Sex Assigned at Date Recorded Not on file Last Filed Vital Signs Vital Sign Reading Time Taken Blood Pressure 137/64 06/28/2017 8:00 AM [employer]ACHINE TENDER Pulse 84 06/28/2017 8:00 AM [employer] INS[employer] MACHINE TENDER Temperature 37.1 C (98.8 F) 06/28/2017 8:00 AM [employer] INS[employer] MACHINE TENDER Respiratory Rate 18 06/28/2017 8:00 AM [employer] INS[employer] MACHINE TENDER Oxygen Saturation 98% 06/28/2017 8:00 AM [employer] INSPE[employer] MACHINE TENDER Inhaled Oxygen - - Concentration Weight 77.1 kg (170 lb) 06/25/2017 7:49 AM [employer] INSPECTION MACHINE TENDER Height 170.2 cm (5' 7") 06/25/2017 7:49 AM [employer] MACHINE TENDER Body Mass Index 26.63 06/25/2017 7:49 AM [employer] INSPE[employer] MACHINE TENDER Plan of Treatment Not on file Results [...] 0.20 K/ L Specimen Performing Laboratory Blood [facility] [address] [place] [id number] * CBC with platelet count + automated diff (06/28/2017 7:21 AM) Only the most recent of 4 results within the time period is included. Specimen Performing Laboratory Blood Narrative The following orders were created for panel order CBC with platelet count + automated diff. Procedure Abnormality Status --------- - ------ CBC with platelet count ...[[id number]]AbnormalFinal result Please view results for these tests [...] FOR DIALYSIS PATIENTS. Specimen Performing Laboratory Blood [facility] [address] [place] [address] * POC-Glucose meter (06/28/2017 5:55 AM) Only the most recent of 13 results within the time period is included. Component Value Ref Range POC-Glucose Meter 265 (H)Comment: TESTED AT [facility] [address] [facility] 70 - 110 mg/dL [facility] [id number] Specimen Performing Laboratory [place] [address] * ED ECG Interpretation (06/26/2017 12:11 PM) [...] - 5.50 uIU/mL Specimen Performing Laboratory Blood [facility] [address] [place] [address] * Hemoglobin A1c (06/26/2017 4:34 AM) Component Value Ref Range Hemoglobin A1C 10.4 (H) 4.3 - 6.1 % Specimen Performing Laboratory [facility] [address] [place] [address] * Lipid panel (06/26/2017 4:34 AM) Component Value Ref Range Triglycerides 92 mg/dL Cholesterol 156 mg/dL HDL 41 mg/dL LDL Calculated 97 mg/dL Specimen Performing Laboratory Blood [facility] [address] [place], [place] [id number] Narrative Triglyceride Reference Range: Low Risk <150 [id number] High Risk 200-499 Very High Risk>=500 Cholesterol Reference Range: Low Risk <200 Rigtuczeex990-239 High Risk>240 HDL Cholesterol Reference Range: Low Risk >=60 High Risk <40 LDL Cholesterol Reference Range: Optimal<100 Near Ujkspmt106-591 Uyksirjdvm769-074 Lvcd288-930 Very High >=190 Specimen slightly icteric * Urine culture (06/25/2017 9:51 AM) Component Value Ref Range Result Result 10-19,000 col/mL Beta-hemolytic streptococcus group B, by serological grouping (A) Specimen Performing Laboratory Urine - Urine, [facility] [address] [place] [address] Narrative >100,000 col/mL skin laura * Rapid drug screen, urine (06/25/2017 9:17 AM) Component Value Ref Range Barbiturate Screen Negative Negative Benzodiazepine Screen Negative Negative Cocaine (Metab.) Screen Negative Negative Methadone Screen Negative Negative Opiate Screen Negative Negative Cannabinoid Screen Negative Negative Amph/Methamph Screen Negative Negative Phencyclidine Screen Negative Negative Specimen Performing Laboratory Urine - Urine, [facility] [address] [address] [place] [address] Narrative DRUGCUTOFF CONC. Cocaine 300 ng/mL Kpflmnbapdd62 ng/mL Vbdvjpepiatxqr733 ng/mL Barbiturate 200 ng/mL Njoyhaornshjy05 ng/mL Zajnwi750 ng/mL Methadone 300 ng/mL Amphetamine/ 1000 ng/mL Methamphetamine This assay provides an unconfirmed qualitative test result for the clinical management of patients in emergency situations. Chain of custody not maintained. Some xcbm-rvi-omryivz medications, as well as adulterants, may cause inaccurate results. Clinical correlation should be applied. A more comprehensive drug screen or confirmation of a detected drug may be performed upon request. * Urinalysis w/Microscopic (06/25/2017 9:17 AM) Component Value Ref Range Color, UA Yellow Clarity, UA Cloudy Specific [place], UA 1.015 1.001 - 1.035 pH, UA [...] Specimen Performing Laboratory Urine - Urine, Clean [facility] [address] [facility] [address] * CT brain without IV contrast (06/25/2017 [...] MD Report Verified Date/Time:06/25/2017 09:14:38 Reading Location: [facility] Radiology Reading Room Procedure Note Interface, External Ris In - 06/25/2017 9:16 AM [employer] INS[employer] MACHINE TENDER FINAL REPORT CT head without contrast 06/25/2017 [...] Report Verified Date/Time: 06/25/2017 09:14:38 Reading Location: [facility] Radiology Reading Room * XR chest [...] MD Report Verified Date/Time:06/25/2017 08:11:55 Reading Location: [facility] Reading Room Procedure Note Interface, External Ris In - 06/25/2017 8:14 AM [employer] INS[employer] MACHINE TENDER FINAL REPORT Chest one view AP 06/25/2017 8:11 AM CLINICAL INDICATION: confusion COMPARISON: None available IMPRESSION: Cardiomediastinal contours are within normal limits. The central pulmonary vasculature is not engorged. The lungs are well aerated. Signed: Mir Hernandez MD Report Verified Date/Time: 06/25/2017 08:11:55 Reading Location: [facility] Radiology Reading Room * Troponin I (06/25/2017 8:00 AM) Component Value Ref Range Troponin I 0.03 0.00 - 0.15 ng/mL Specimen Performing Laboratory [facility] [address] [place] [address] Narrative Troponin I (TnI) levels must be [...] Relative Index 3.0 % Specimen Performing Laboratory [facility] [address] [place] [address] Narrative CK-MB Reference Range: <5 Normal 5-10 Borderline >10Abnormal * Ethanol (06/25/2017 8:00 AM) Component Value Ref Range Ethanol Lvl 38 (H) <=10 mg/dL Specimen Performing Laboratory [facility] [address] [place] [address] after 08/30/2016
[2017-08-31] MEDS: FAMOTIDINE 20 MG TAB PO SCH ×3 (01:25→21:00)
[2017-08-31 01:34] LABS: CLARITY,URINE CLEAR (CLEAR); COLOR,URINE YELLOW (YELLOW)
[2017-08-31 01:35] LABS: BILIRUBIN,URINE NEGATIVE (NEGATIVE); KETONES,URINE NEGATIVE (NEGATIVE); LEUKOCYTE ESTERASE ,URINE TRACE (NEGATIVE); NITRITE,URINE NEGATIVE (NEGATIVE); PROTEIN,URINE DIPSTICK NEGATIVE (NEGATIVE); URINE UROBILINOGEN 0.2 mg/dL (0.2 - 1)
[2017-08-31 01:44] LABS: WBC,URINE (MAN) >50 /HPF (0-5)
[2017-08-31 01:45] LABS: BACTERIA,URINE RARE /HPF; EPITHELIAL CELLS,URINE FEW /LPF; RBC,URINE 0-5 /HPF (0-5)
[2017-08-31] MEDS: LORAZEPAM INJ 2 MG/ML VIAL IV SCH ×3 (06:01→18:03)
[2017-08-31] MEDS: CLINDAMYCIN PHOS 900MG/ D5W 50 50 ML IV SCH ×3 (06:39→22:15)
[2017-08-31] MEDS: CEFTRIAXONE SOD 1 GM VIAL IV SCH (06:39)
[2017-08-31 06:43] LABS: CREATINE KINASE MB 2.7 ng/mL (0-5.0)
[2017-08-31] MEDS ORDERED: GLIMEPIRIDE4 MG PO (08:01)
[2017-08-31] MEDS ORDERED: LOVASTATIN20 MG PO (08:01)
[2017-08-31] MEDS: ASPIRIN 81 MG ENTERIC COATED PO SCH (09:05)
[2017-08-31] MEDS: THIAMINE HCL INJ 100 MG/ML 2ML VIAL IV SCH (09:05)
[2017-08-31] MEDS: CLONIDINE HCL 0.1 MG TAB PO PRN (09:30)
[2017-08-31 10:43] LABS: CREATINE KINASE MB 2.7 ng/mL (0-5.0)
[2017-08-31 11:04] LABS: AMPHETAMINES SCREEN,URINE NEGATIVE (NEGATIVE); PHENCYCLIDINE SCREEN,URINE NEGATIVE (NEGATIVE)
[2017-08-31 11:05] LABS: BENZODIAZEPINES SCREEN,URINE NEGATIVE (NEGATIVE)
[2017-08-31 11:06] LABS: THYROID STIMULATING HORMONE 1.011 uIU/mL (0.350-4.940)
--- NOTE | 2017-08-31 12:08 | Diagnostic Imaging Report ---
Exam: Brain MRI without IV contrast History: Dementia, altered mental status, possible stroke, encephalopathy. Comparison studies: None Technique: Axial DWI, axial T2 FLAIR and 3-D T1 with axial, coronal and sagittal reformats. Intravenous contrast: None Findings: Limitations: Exam was terminated early and not all pulse sequences were able to be obtained due to the patient's condition. The acquired axial T2 FLAIR and T1 sequences are also degraded by artifacts related to patient motion. Scalp: Normal in signal. No gross mass. Bone marrow: Normal in signal intensity. Written volume: Mild generalized volume loss with slightly greater disproportionate volume loss in the anteromedial temporal lobes. Ventricles: Mild compensatory dilatation. No acute hydrocephalus. Extra-axial spaces: No mass, no fluid collection. Parenchyma: Small acute ischemic insult with restricted diffusion in the left frontal periventricular white matter. No additional abnormal restricted diffusion. No mass or acute hemorrhage. Chronic right inferior striatal-capsular lacunar insult is with decreased signal on the T2 FLAIR and DWI sequence related to previous hemorrhage. Scattered and mildly confluent-periventricular T2 FLAIR signal changes in the supratentorial white matter are nonspecific but most compatible with chronic small vessel ischemic changes. Suprasellar region: No gross abnormalities. Craniocervical junction: Patent foramen magnum. No Chiari malformation. Vessels: Cannot adequately evaluate. Grossly normal flow-voids in the arteries and sinuses. IMPRESSION: Limited exam as described. In spite of limitations: 1. Small focal acute ischemia in the left frontal periventricular white matter. 2. No mass or acute hemorrhage. 3. Moderate supratentorial chronic microvascular ischemic changes. 4. Chronic right inferior striatocapsular lacunar infarct. 5. Generalized volume loss with slightly greater disproportionate volume loss along the anteromedial temporal lobes which can be seen with Alzheimer's dementia in the appropriate clinical setting. Findings were discussed with Dr. Posada at 12:03 PM on 08/31/2017. Signed by: Dr. Farzad Sena M.D. on 08/31/2017 12:05 PM
[2017-08-31] MEDS ORDERED: DEXTROSE 50% SYRINGE 50 ML IV PRN (12:30)
[2017-08-31] MEDS: INSULIN REGULAR, HUMAN 100 UNIT/1 ML 3ML VIAL SQ SCH ×2 (12:43→16:48)
[2017-08-31] MEDS ORDERED: INSULIN REGULAR, HUMAN 100 UNIT/1 ML 3ML VIAL ONE (12:47)
--- NOTE | 2017-08-31 16:27 | Consultation ---
NEUROLOGY CONSULTATION DATE OF CONSULTATION: August 31, 2017 HISTORY OF PRESENT ILLNESS: The patient is encephalopathic at the time of evaluation. History is obtained from the patient's daughter and step-daughter who are at the bedside. Mr. Tapia is a 72-year-old right hand dominant man with past medical history significant for hypertension, hyperlipidemia, and diabetes mellitus type 2 (not compliant with medications). He was brought in to [facility] on August 30, 2017 with worsening confusion. When asked why she brought her father to the emergency center, the patient's daughter replied, "His dementia is worse." It should be noted, the patient does not have a formal diagnosis of dementia. His daughter began noticing memory loss, forgetfulness, and confusion approximately 2 months ago; however, it appears the patient's symptoms began approximately 6 months ago. The patient's daughter reports Mr. Tapia stopped paying his bills in February 2017. Recently, he did not recognize his step-daughter whom he has known/cared for for more than 30 years. In the past 2 months, the patient has not recalled recent conversations with his daughter. Mr. Tapia's daughter reports the patient often forgets conversations after a few minutes. In the past few months, the patient has "lost 2 vehicles." When asked how the patient lost these vehicles, his daughter cannot answer. She has tried to determine whether or not the patient drove the vehicle somewhere and then left it or if it was borrowed by someone and not returned, but has been unable to do so. Mr. Tapia has a history of chronic alcohol abuse. His daughter reports he began drinking at approximately 17 years of age. When he was "a responsible drinker," he would begin drinking beer at approximately 5 p.m. daily. On average, the patient would consume 12 beers per day. However, his daughter reports there have been numerous occasions where she has witnessed him to drink 24 beers a day. Within the past several months, the patient has begun to drink beer throughout the day. Mr. Tapia's roommate has told his daughter the patient begins drinking as soon he awakens in the morning and drinks throughout the day. Mr. Tapia is adopted. There is no known family history of memory disorders. REVIEW OF SYSTEMS: Unintentional weight loss of approximately 20 pounds over the past several months, possible inappropriate sadness, agitation, memory impairment, confusion, urinary urgency and frequency, and multiple wounds over the legs and torso. PAST MEDICAL HISTORY: Hypertension, hyperlipidemia, diabetes mellitus type 2, and chronic alcoholism. PAST SURGICAL HISTORY: None. PAST HOSPITALIZATIONS: Mr. Tapia was hospitalized approximately 2 years ago after being found unconscious in his driveway. The daughter reports the patient had high ammonia levels during that hospitalization. FAMILY HISTORY: As stated in the history of present illness, the patient is adopted. The medical histories of his paternal grandparents, maternal grandparents, father, mother, and any siblings is unknown. The patient has one son who is healthy. He has a daughter who was recently diagnosed with Crohn's disease. SOCIAL HISTORY: The patient is a . He completed school through his anju year of high school. He is a retired airframe and power plant mechanic. There is a remote history of tobacco use, but the patient quit smoking cigarettes in 1993. The patient's history of alcohol abuse is documented in the history of present illness. There is no known current or prior recreational drug use. HOME MEDICATIONS: Patient's daughter reports Mr. aTpia is not taking medications at home. ALLERGIES: NO KNOWN DRUG ALLERGIES. NO KNOWN FOOD ALLERGIES. NO KNOWN ALLERGY TO LATEX. NO KNOWN ALLERGY TO IODINE AND OTHER CONTRAST MATERIALS. PHYSICAL EXAMINATION VITAL SIGNS: Height 65 inches, weight 250 pounds, BMI 41.6 kg/meter sq, blood pressure 138/82 mmHg, pulse 82 beats per minute, respiratory rate 16 breaths per minute, and oxygen saturation is 97% on room air. GENERAL: The patient is drowsy, does not appear distressed. Obese. HEENT: Normocephalic, atraumatic. Pupils are equal, round, and reactive to light. Moist mucous membranes. NECK: Supple. No appreciable thyromegaly. No appreciable carotid bruits. CARDIOVASCULAR: S1 and S2. Regular rate and rhythm. No murmurs, rubs, or gallops. RESPIRATORY: Clear to auscultation bilaterally. No wheezes, rhonchi, or rales. EXTREMITIES: The skin is warm and dry. No clubbing, cyanosis, or edema. The posterior tibial and dorsalis pedis pulses are trace and symmetric. SKIN: Ulcers/abscesses over the forelegs. Venous stasis ulcerations over the forelegs. NEUROLOGIC MEMORY/ATTENTION: The patient is drowsy, oriented to person only. CRANIAL NERVES: Cranial nerve 1-not tested. Cranial nerve 2, 3, 4, and 6-Pupils are equal and round, react briskly to light (from 3 mm to 2 mm), extraocular movements intact, no nystagmus. Cranial nerve 5-sensation to light touch and pinprick is intact in the bilateral V1 through V3 distributions. Strength of the temporalis and masseter muscles is within normal limits. Cranial nerve 7-the face is symmetric as are all facial movements. Strength is within normal limits. Cranial nerve 8-hearing is diminished to finger rub bilaterally. Cranial nerve 9, 10-the soft palate elevates equally and symmetrically. Cranial nerve 11 ? normal strength of the bilateral sternocleidomastoid and trapezius muscles. Cranial nerve 12-the tongue protrudes in the midline and moves symmetrically from side to side. STRENGTH: Bulk is normal. The patient maintains both arms against gravity for more than 10 seconds each. The patient maintains the left leg against gravity for more than 5 seconds. There is drift in the right leg. Tone is normal. DTRs: Deep tendon reflexes are reflexes are 1+ and symmetric at the triceps, biceps, and brachioradialis. Deep tendon reflexes are absent and symmetric at patellas and Achilles. Plantar responses are flexor bilaterally. Absent clonus. SENSATION: Sensation is intact to light touch and pinprick in both arms and both legs. CEREBELLAR: Odcnhu-lfht-lmjmbr and heel-sanchez movements are slowed, but otherwise intact without dysmetria or other impairment. GAIT: Deferred. SPEECH: Spontaneous speech is moderately dysarthric without aphasia. Repetition is intact. INVOLUNTARY MOVEMENTS: None. PRONATOR DRIFT: As per moderate exam. LABORATORY DATA: Sodium 131, potassium 3.5, chloride 99, carbon dioxide 23, anion gap 12.5, BUN 11, creatinine 0.82, estimated GFR greater than 60, BUN to creatinine ratio of 113, glucose 142, and calcium 8.5. Total bilirubin 2.1, AST 48, ALT 22, alkaline phosphatase 72, total protein 8.2, albumin 2.4, globulin 5.8, and albumin to globulin ratio 0.4. Fingerstick glucose is 160. Creatinine kinase 97 and 81, CK-MB 2.90 and 2.70, and troponin-I 0.010 and 0.013. DIAGNOSTIC STUDIES: Chest x-ray on 08/30/2017: No acute thoracic abnormality. ASSESSMENT AND PLAN: Mr. Tapia is a 72-year-old right hand dominant man with past medical history significant for hypertension, hyperlipidemia, and diabetes mellitus type 2 (not compliant with medications) presenting with worsening confusion over a period of approximately 6 months. The patient's neurological examination is significant for the patient being drowsy, oriented to person only, positive drift in the right leg, and moderately dysarthric speech. The patient's laboratory data and diagnostic studies have been reviewed and are documented above. Mr. Tapia has a multifactorial metabolic encephalopathy. Contributing to this encephalopathy is a urinary tract infection (present on admission) and multiple possible wound infections. The patient's blood pressure is moderately elevated; this may contribute to his encephalopathy. Mr. Tapia's extraocular movements are grossly intact, and there is no ataxia appreciated on his neurological examination. However, given his prolonged history of alcohol abuse, an underlying Wernicke's encephalopathy must be considered. In addition to the aforementioned, the dysarthric speech and drift in the right leg is concerning for stroke. Mr. Tapia is at an appropriate age for symptoms of dementia to present as well. RECOMMENDATIONS 1. Additional blood work will be ordered to evaluate the patient's encephalopathy. This blood work includes thyroid function tests, vitamin B1 level, vitamin B12 level, ammonia level, RPR, a urine drug screen, and blood alcohol level. 2. A MRI of the brain without contrast will be ordered to evaluate for wmkou-ui-wrqbfqgj ischemia and for findings suggestive of dementia. 3. The patient is receiving thiamine 100 mg daily. 4. Defer treatment of the remaining medical comorbidities to the primary and other services. Thank you for this consultation. I will continue to follow this patient while he remains in the hospital. Time spent: 70 minutes. Job#: [id number] MAMI CHÁVEZ
[2017-08-31 17:20] VITALS: BP 167/74
[2017-08-31 19:41] VITALS: BP 167/74
[2017-08-31] MEDS: HALOPERIDOL LACTATE 5 MG/ML VIAL IV PRN (20:13)
[2017-08-31] MEDS: SIMVASTATIN 20 MG TAB PO SCH (21:00)
[2017-08-31 21:22] VITALS: BP 184/97
[2017-09-01] VITALS (8 sets, daily range): BP systolic 134–186; BP diastolic 70–92
[2017-09-01] MEDS: LORAZEPAM INJ 2 MG/ML VIAL IV SCH ×4 (00:27→17:48)
[2017-09-01] MEDS: CLONIDINE HCL 0.1 MG TAB PO PRN (00:35)
[2017-09-01] MEDS: MULTIVITAMINS- 12 INJECTION 10 ML, FOLIC ACID MDV 5 MG, THIAMINE HCL INJ 100 MG in SODI... IV SCH ×3 (01:00→22:26)
[2017-09-01] MEDS: CLINDAMYCIN PHOS 900MG/ D5W 50 50 ML IV SCH ×3 (06:24→22:33)
[2017-09-01] MEDS: CEFTRIAXONE SOD 1 GM VIAL IV SCH (06:30)
[2017-09-01 07:14] LABS: BASOPHILS % 0.8 % (0.0-1.0); EOSINOPHILS # (AUTO) 0.2 (0.0-0.4); EOSINOPHILS % 3.9 % (0.0-6.0); HEMATOCRIT 27.1 % (38.2-49.6); HEMOGLOBIN 9.1 g/dL (14.0-18.0); LYMPHOCYTES # (AUTO) 0.8 (1.0-3.2); LYMPHOCYTES % 15.4 % (18.0-39.1); MEAN CORPUSCULAR HEMOGLOBIN 31.5 pg (28-32); MEAN CORPUSCULAR HGB CONC 33.6 g/dL (31-35); MEAN CORPUSCULAR VOLUME 93.8 fL (81-99); MONOCYTES # (AUTO) 0.7 (0.2-0.8); MONOCYTES % 12.7 % (4.4-11.3); NEUTROPHILS # (AUTO) 3.5 (2.1-6.9); NEUTROPHILS % 66.8 % (38.7-80.0); PLATELET COUNT 84 x10e3/uL (140-360); RED BLOOD COUNT 2.89 x10e6/uL (4.3-5.7); RED CELL DISTRIBUTION WIDTH 15.9 % (11.7-14.4)
[2017-09-01] MEDS: INSULIN REGULAR, HUMAN 100 UNIT/1 ML 3ML VIAL SQ SCH ×4 (07:30→22:27)
[2017-09-01 07:39] LABS: ANION GAP 8.4 mmol/L (8-16); BLOOD UREA NITROGEN 13 mg/dL (7-26); BUN/CREATININE RATIO 16 (6-25); CALCIUM 8.2 mg/dL (8.4-10.2); CARBON DIOXIDE 25 mmol/L (22-29); CHLORIDE 107 mmol/L (98-107); CHOLESTEROL 132 MD/DL (0-199); EST GLOMERULAR FILTRATION RATE > 60 ML/MIN (60-); GLUCOSE 185 mg/dL (74-118); HDL CHOLESTEROL 44 MG/DL (40-60); LDL CHOLESTEROL 75 MG/DL (60-130); POTASSIUM 3.4 mmol/L (3.5-5.1); SODIUM 137 mmol/L (136-145); TRIGLYCERIDES 66 MG/DL (0-149)
[2017-09-01] MEDS: FAMOTIDINE 20 MG TAB PO SCH ×2 (09:00→22:26)
[2017-09-01] MEDS: ASPIRIN 81 MG ENTERIC COATED PO SCH (09:00)
[2017-09-01] MEDS: THIAMINE HCL INJ 100 MG/ML 2ML VIAL IV SCH (09:16)
--- NOTE | 2017-09-01 19:40 | Diagnostic Imaging Report ---
EXAM: US ABDOMEN COMPLETE DATE: 09/01/2017 12:00 AM Time stamp on exam: 1731 hours INDICATION: Elevated LFTs COMPARISON: None TECHNIQUE: Transverse and longitudinal smith scale and color doppler sonographic images of the upper abdomen were obtained. FINDINGS: LIVER 17 cm in the right midclavicular line. Increased echogenicity, nodular contour, no masses. SPLEEN 16.4 cm in maximum diameter. Normal echogenicity, no masses. GALLBLADDER No cholelithiasis. Circumferential wall thickening up to 5 mm. Negative sonographic Wagoner's sign. BILE DUCTS No intra nor extra-hepatic biliary dilation. Common bile duct measures 0.5 cm PANCREAS: Not well visualized RIGHT KIDNEY: 12.6 x 5.6 x 5.4 cm Echogenicity: Normal Collecting System: Moderate hydronephrosis Stones: None Cyst/Mass: None LEFT KIDNEY: 14.8 x 6.3 x 5.1 cm Echogenicity: Normal Collecting System: No hydronephrosis Stones: None Cyst/Mass: None VESSELS: Aorta: Not well visualized. Inferior Vena Cava: Visualized portions are normal Main Portal Vein: 1 cm, normal size with hepatopetal flow. Splenic varices. FREE FLUID: None IMPRESSION: Cirrhosis with portal hypertension including splenomegaly, splenic varices and gallbladder wall thickening. Moderate right renal hydronephrosis without cause identified by ultrasound. Consider CT of the abdomen and pelvis without IV contrast to evaluate for distal ureteral stone. Signed by: Dr. Mandi Escalera M.D. on 09/01/2017 7:37 PM
[2017-09-01] MEDS: SIMVASTATIN 20 MG TAB PO SCH (22:26)
[2017-09-02] VITALS (10 sets, daily range): BP systolic 143–199; BP diastolic 73–96
[2017-09-02] MEDS: CEFTRIAXONE SOD 1 GM VIAL IV SCH (05:44)
[2017-09-02] MEDS: CLINDAMYCIN PHOS 900MG/ D5W 50 50 ML IV SCH ×3 (05:45→22:13)
[2017-09-02] MEDS: LORAZEPAM INJ 2 MG/ML VIAL IV SCH ×4 (06:00→17:58)
[2017-09-02 06:59] LABS: BASOPHILS # (AUTO) 0.1 (0.0-0.1); BASOPHILS % 0.8 % (0.0-1.0); EOSINOPHILS # (AUTO) 0.3 (0.0-0.4); EOSINOPHILS % 4.5 % (0.0-6.0); HEMATOCRIT 27.7 % (38.2-49.6); HEMOGLOBIN 9.3 g/dL (14.0-18.0); LYMPHOCYTES # (AUTO) 1.1 (1.0-3.2); LYMPHOCYTES % 17.7 % (18.0-39.1); MEAN CORPUSCULAR HEMOGLOBIN 31.5 pg (28-32); MEAN CORPUSCULAR HGB CONC 33.6 g/dL (31-35); MEAN CORPUSCULAR VOLUME 93.9 fL (81-99); MONOCYTES # (AUTO) 0.7 (0.2-0.8); MONOCYTES % 11.2 % (4.4-11.3); NEUTROPHILS # (AUTO) 3.9 (2.1-6.9); NEUTROPHILS % 65.6 % (38.7-80.0); PLATELET COUNT 93 x10e3/uL (140-360); RED BLOOD COUNT 2.95 x10e6/uL (4.3-5.7); RED CELL DISTRIBUTION WIDTH 16.2 % (11.7-14.4)
--- NOTE | 2017-09-02 07:13 | Diagnostic Imaging Report ---
EXAMINATION: CT of the abdomen and pelvis without contrast. TECHNIQUE: Spiral CT images of the abdomen and pelvis were performed from the lung bases to the lesser trochanters. No intravenous contrast was given per renal stone protocol. Coronal and sagittal reformatted images were obtained. COMPARISON: Abdominal ultrasound 09/01/2017 CLINICAL HISTORY:Cirrhosis, right hydronephrosis DISCUSSION: ABSENCE OF INTRAVENOUS CONTRAST DECREASES SENSITIVITY FOR DETECTION OF FOCAL LESIONS AND VASCULAR PATHOLOGY. ABDOMEN/PELVIS: LOWER THORAX: Subsegmental atelectasis in the dependent lower lobes. Mitral annular and coronary artery calcifications. HEPATOBILIARY:Nodular external hepatic contour in keeping with cirrhosis. Evaluation for focal lesions is markedly limited by absence of intravenous contrast. No intrahepatic biliary dilatation. The gallbladder is unremarkable. SPLEEN: Spleen is enlarged, measuring 16 cm in craniocaudal span. PANCREAS: No focal masses or ductal dilatation. ADRENALS: No adrenal nodules. KIDNEYS/URETERS: Moderate right hydroureteronephrosis with ureteral tortuosity. No obstructing calculus is identified. No gross mass lesion within the urinary bladder. No gross renal mass lesion. No left hydronephrosis. PELVIC ORGANS/BLADDER: Urinary bladder is unremarkable. Prostate is of normal size. PERITONEUM/RETROPERITONEUM: Small volume perihepatic and perisplenic ascites. No pneumoperitoneum. LYMPH NODES: No pelvic sidewall, retroperitoneal, or mesenteric lymphadenopathy. VESSELS: Limited evaluation without intravenous contrast. Extensive atherosclerotic calcification of the abdominal aorta and branch vessels without aneurysmal dilatation. Splenorenal venous shunt is suspected however this is poorly evaluated in the absence of intravenous contrast. GI TRACT: The large bowel shows no distention or wall thickening. Gas and fecal material are noted throughout. The appendix is normal. The stomach is collapsed and poorly evaluated. No small bowel dilatation to suggest obstruction. BONES AND SOFT TISSUES: Small fat-containing umbilical hernia. Thermal or subcutaneous calcification along the left upper quadrant abdominal wall. No osseous destructive lesions. Degenerative disc changes of the lumbar spine. IMPRESSION: Moderate right hydroureteronephrosis without obstructing calculus or other lesion identified. Urology consultation is suggested, and retrograde pyelography may be of benefit to evaluate for occult lesion. Cirrhosis with portal hypertension evidenced by splenomegaly and ascites. Atherosclerotic vascular disease. Signed by: Dr. Farzad Peng M.D. on 09/02/2017 7:10 AM
[2017-09-02 07:20] LABS: ALANINE AMINOTRANSFERASE 17 IU/L (0-55); ALBUMIN 1.9 g/dL (3.5-5.0); ALBUMIN/GLOBULIN RATIO 0.4 (0.8-2.0); ALKALINE PHOSPHATASE 56 IU/L (40-150); BLOOD UREA NITROGEN 11 mg/dL (7-26); BUN/CREATININE RATIO 14 (6-25); CARBON DIOXIDE 25 mmol/L (22-29); CHLORIDE 105 mmol/L (98-107); CREATININE, SERUM 0.78 mg/dL (0.72-1.25); EST GLOMERULAR FILTRATION RATE > 60 ML/MIN (60-); GLUCOSE 153 mg/dL (74-118); SODIUM 136 mmol/L (136-145)
[2017-09-02] MEDS: THIAMINE HCL INJ 100 MG/ML 2ML VIAL IV SCH (08:34)
[2017-09-02] MEDS: ASPIRIN 81 MG ENTERIC COATED PO SCH (08:34)
[2017-09-02] MEDS: FAMOTIDINE 20 MG TAB PO SCH ×2 (08:34→21:57)
[2017-09-02] MEDS: INSULIN REGULAR, HUMAN 100 UNIT/1 ML 3ML VIAL SQ SCH ×4 (08:35→22:00)
[2017-09-02] MEDS: MULTIVITAMINS- 12 INJECTION 10 ML, FOLIC ACID MDV 5 MG, THIAMINE HCL INJ 100 MG in SODI... IV SCH ×2 (09:01→17:32)
[2017-09-02] MEDS ORDERED: MAGNESIUM SULFATE 2GM/50ML 50 ML IV ONE ×2 (09:45→15:15)
[2017-09-02] MEDS ORDERED: POTASSIUM CHLORIDE 20 MEQ TAB CR PO NR (09:45)
[2017-09-02] MEDS: SIMVASTATIN 20 MG TAB PO SCH (21:57)
[2017-09-02] MEDS: CLONIDINE HCL 0.1 MG TAB PO PRN (22:23)
[2017-09-03] MEDS: LORAZEPAM INJ 2 MG/ML VIAL IV SCH ×4 (01:20→18:00)
[2017-09-03 04:09] VITALS: BP 139/77
[2017-09-03] MEDS: CEFTRIAXONE SOD 1 GM VIAL IV SCH (05:46)
[2017-09-03] MEDS: CLINDAMYCIN PHOS 900MG/ D5W 50 50 ML IV SCH ×3 (05:46→21:49)
[2017-09-03 06:46] LABS: ALANINE AMINOTRANSFERASE 13 IU/L (0-55); ALBUMIN 1.9 g/dL (3.5-5.0); ALBUMIN/GLOBULIN RATIO 0.4 (0.8-2.0); ALKALINE PHOSPHATASE 60 IU/L (40-150); ANION GAP 9.4 mmol/L (8-16); BLOOD UREA NITROGEN 9 mg/dL (7-26); BUN/CREATININE RATIO 12 (6-25); CARBON DIOXIDE 25 mmol/L (22-29); CHLORIDE 109 mmol/L (98-107); CREATININE, SERUM 0.78 mg/dL (0.72-1.25); EST GLOMERULAR FILTRATION RATE > 60 ML/MIN (60-); GLUCOSE 169 mg/dL (74-118); POTASSIUM 3.4 mmol/L (3.5-5.1); SODIUM 140 mmol/L (136-145)
[2017-09-03] MEDS: INSULIN REGULAR, HUMAN 100 UNIT/1 ML 3ML VIAL SQ SCH ×4 (08:00→21:50)
[2017-09-03] MEDS: SILVER ANTIMICROBIAL WOUND GEL 45ML TOP SCH (09:34)
[2017-09-03] MEDS: FAMOTIDINE 20 MG TAB PO SCH ×2 (09:34→21:49)
--- NOTE | 2017-09-03 09:37 | Consultation ---
DATE OF CONSULTATION: September 03, 2017 UROLOGY CONSULTATION REASON FOR CONSULTATION: Hydronephrosis. HISTORY OF PRESENT ILLNESS: Moise Tapia is a 72-year-old man who denies any previous urological surgery or evaluation. He was admitted with multiple infected wounds and type-2 diabetes mellitus. He has cirrhosis, and he was evaluated with an ultrasound and was found to have hydronephrosis. CT scanning was subsequently performed, and it revealed moderate right hydronephrosis with ureteral tortuosity, but no stone was visualized. No left hydronephrosis was noted. The prostate seemed unremarkable. Urological consultation was subsequently sought for this finding. The patient denies previous urolithiasis or any urological evaluation. Denies any hematuria or dysuria. The patient is currently wearing a diaper, so he is currently incontinent into a diaper. PAST MEDICAL AND SURGICAL HISTORY 1. Current encephalopathy evaluated by neurology. 2. Hypertension. 3. Hyperlipidemia. 4. Diabetes mellitus, type 2, noncompliant with medication. 5. Alcoholism with drinking a case of beer per day. 6. Worsening dementia. 7. Multiple lower extremity wounds consistent with mcgrath. CURRENT MEDICATIONS: Please refer to the MAR. ALLERGIES: NONE KNOWN. SOCIAL HISTORY: The patient quit smoking over 20 years ago. He has continued to drink. The patient is a . 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 FAMILY HISTORY: Noncontributory to his active urological problems. REVIEW OF SYSTEMS: As discussed above in the history of present illness and past medical history, otherwise negative for all systems. PHYSICAL EXAMINATION GENERAL: Somewhat somnolent man, lying in bed in no apparent distress. VITAL SIGNS: He is currently afebrile, and the vital signs are currently stable. ABDOMEN: Soft, nondistended and nontender without costovertebral angle tenderness. Kidneys are not palpable. GENITOURINARY: Testes are descended bilaterally. Testes are bilaterally somewhat atrophic. Patient has a normal, uncircumcised male phallus with a normal meatus with mild erythema due to voiding into a diaper. For the remaining physical examination systems, please refer to the admission history and physical on the chart. LABORATORY STUDIES: CT scan of the abdomen and pelvis revealed right hydroureteronephrosis without specific etiology and an unremarkable urinary tract otherwise. Renal ultrasound showed moderate hydronephrosis on the right kidney. White blood cell count is 5990, hemoglobin decreased at 9.3, platelets decreased at 93,000. The patient's potassium was low at 3.4, and his calcium is low at 8.0. Urinalysis is significant for greater than 50 WBCs, trace leukocyte esterase. No urine culture apparently was done. The patient has been on intravenous antibiotics since admission on August 31. ASSESSMENT 1. Right hydroureteronephrosis of unknown etiology. 2. Incontinence. 3. Atrophic testes. 4. Anemia. 5. Thrombocytopenia. 6. Mild hypokalemia. 7. Hypocalcemia. 8. Probable urinary tract infection. PLAN: The patient needs cystoscopy with retrograde and possibly insertion of stent. This probably should be performed prior to any placement although plans for placement should be in order. In preparation for the procedure, I will stop the patient's current regimen of aspirin. Thank you very much for involving us in the care of your patient. We will be happy to follow him along with you, as well as an outpatient. Job#: [id number] cc:COURTNEY FRANCO MD
[2017-09-03 10:35] VITALS: BP 155/78
[2017-09-03 10:41] VITALS: BP 155/78
[2017-09-03 12:00] VITALS: BP 155/79
[2017-09-03] MEDS ORDERED: SODIUM CHLORIDE 0.9% 250ML 250 ML ONE (13:44)
[2017-09-03 16:00] VITALS: BP 149/70
[2017-09-03] MEDS: SIMVASTATIN 20 MG TAB PO SCH (21:49)
[2017-09-03 23:38] VITALS: BP 149/70
[2017-09-04] VITALS (9 sets, daily range): BP systolic 118–197; BP diastolic 55–87
[2017-09-04] MEDS: LORAZEPAM INJ 2 MG/ML VIAL IV SCH ×4 (00:57→18:00)
[2017-09-04] MEDS: CLONIDINE HCL 0.1 MG TAB PO PRN ×2 (05:23→12:42)
[2017-09-04] MEDS ORDERED: HYDRALAZINE HCL 20 MG/ML VIAL IV PRN (06:00)
[2017-09-04] MEDS: CEFTRIAXONE SOD 1 GM VIAL IV SCH (06:12)
[2017-09-04] MEDS: CLINDAMYCIN PHOS 900MG/ D5W 50 50 ML IV SCH ×3 (06:13→22:31)
[2017-09-04 06:30] LABS: BASOPHILS # (AUTO) 0.1 (0.0-0.1); BASOPHILS % 0.9 % (0.0-1.0); EOSINOPHILS # (AUTO) 0.3 (0.0-0.4); EOSINOPHILS % 4.2 % (0.0-6.0); HEMATOCRIT 29.5 % (38.2-49.6); HEMOGLOBIN 9.6 g/dL (14.0-18.0); LYMPHOCYTES # (AUTO) 1.1 (1.0-3.2); LYMPHOCYTES % 14.3 % (18.0-39.1); MEAN CORPUSCULAR HEMOGLOBIN 30.5 pg (28-32); MEAN CORPUSCULAR HGB CONC 32.5 g/dL (31-35); MEAN CORPUSCULAR VOLUME 93.7 fL (81-99); MONOCYTES # (AUTO) 0.7 (0.2-0.8); MONOCYTES % 9.8 % (4.4-11.3); NEUTROPHILS # (AUTO) 5.2 (2.1-6.9); NEUTROPHILS % 70.4 % (38.7-80.0); PLATELET COUNT 106 x10e3/uL (140-360); RED BLOOD COUNT 3.15 x10e6/uL (4.3-5.7); RED CELL DISTRIBUTION WIDTH 16.2 % (11.7-14.4)
[2017-09-04 06:59] LABS: ALANINE AMINOTRANSFERASE 14 IU/L (0-55); ALBUMIN/GLOBULIN RATIO 0.4 (0.8-2.0); ALKALINE PHOSPHATASE 58 IU/L (40-150); ANION GAP 9.4 mmol/L (8-16); BLOOD UREA NITROGEN 13 mg/dL (7-26); BUN/CREATININE RATIO 15 (6-25); CALCIUM 8.2 mg/dL (8.4-10.2); CARBON DIOXIDE 24 mmol/L (22-29); CHLORIDE 106 mmol/L (98-107); CREATININE, SERUM 0.85 mg/dL (0.72-1.25); EST GLOMERULAR FILTRATION RATE > 60 ML/MIN (60-); GLUCOSE 175 mg/dL (74-118); POTASSIUM 3.4 mmol/L (3.5-5.1); SODIUM 136 mmol/L (136-145)
[2017-09-04] MEDS: INSULIN REGULAR, HUMAN 100 UNIT/1 ML 3ML VIAL SQ SCH ×4 (07:30→21:33)
[2017-09-04] MEDS ORDERED: BELLADONNA/OPIUM 60 MG SUPP PR ONE (09:34)
[2017-09-04] MEDS ORDERED: IOPAMIDOL 610MG/1ML 300 MG/ML VIAL IV ONE (09:34)
[2017-09-04] MEDS: SILVER ANTIMICROBIAL WOUND GEL 45ML TOP SCH (11:45)
[2017-09-04] MEDS: FAMOTIDINE 20 MG TAB PO SCH ×2 (11:45→21:32)
[2017-09-04] MEDS: PIPER-TAZ 3.375 GM 100 ML IV SCH ×2 (13:54→21:32)
[2017-09-04] MEDS ORDERED: DESFLURANE 240 ML BTL INH ONE (17:04)
[2017-09-04] MEDS ORDERED: PROPOFOL IV EMULSION 10 MG/ML 20 ML VIAL ONE (17:04)
[2017-09-04] MEDS ORDERED: LIDOCAINE HCL 2% LOCAL INJ 5 ML SDV VIAL INJ ONE (17:04)
[2017-09-04] MEDS ORDERED: FENTANYL CITRATE/PF 100MCG/2 ML INJ ONE (19:50)
[2017-09-04] MEDS ORDERED: DONEPEZIL HCL 5 MG TAB PO SCH (21:00)
[2017-09-04] MEDS: SIMVASTATIN 20 MG TAB PO SCH (21:32)
[2017-09-05] VITALS (7 sets, daily range): BP systolic 99–193; BP diastolic 47–79
[2017-09-05] MEDS: LORAZEPAM INJ 2 MG/ML VIAL IV SCH ×4 (00:10→18:06)
[2017-09-05] MEDS: HALOPERIDOL LACTATE 5 MG/ML VIAL IV PRN (02:52)
[2017-09-05] MEDS: PIPER-TAZ 3.375 GM 100 ML IV SCH ×2 (05:51→12:27)
[2017-09-05] MEDS: CLINDAMYCIN PHOS 900MG/ D5W 50 50 ML IV SCH ×2 (05:51→12:13)
[2017-09-05 06:44] LABS: BASOPHILS # (AUTO) 0.1 (0.0-0.1); BASOPHILS % 0.8 % (0.0-1.0); EOSINOPHILS # (AUTO) 0.3 (0.0-0.4); EOSINOPHILS % 4.7 % (0.0-6.0); HEMATOCRIT 27.5 % (38.2-49.6); HEMOGLOBIN 9.3 g/dL (14.0-18.0); LYMPHOCYTES # (AUTO) 0.9 (1.0-3.2); LYMPHOCYTES % 14.4 % (18.0-39.1); MEAN CORPUSCULAR HEMOGLOBIN 31.2 pg (28-32); MEAN CORPUSCULAR HGB CONC 33.8 g/dL (31-35); MEAN CORPUSCULAR VOLUME 92.3 fL (81-99); MONOCYTES # (AUTO) 0.6 (0.2-0.8); MONOCYTES % 9.8 % (4.4-11.3); NEUTROPHILS # (AUTO) 4.3 (2.1-6.9); NEUTROPHILS % 70.1 % (38.7-80.0); PLATELET COUNT 95 x10e3/uL (140-360); RED BLOOD COUNT 2.98 x10e6/uL (4.3-5.7); RED CELL DISTRIBUTION WIDTH 16.1 % (11.7-14.4)
[2017-09-05 06:59] LABS: ANION GAP 10.4 mmol/L (8-16); BLOOD UREA NITROGEN 13 mg/dL (7-26); BUN/CREATININE RATIO 16 (6-25); CARBON DIOXIDE 24 mmol/L (22-29); CHLORIDE 108 mmol/L (98-107); CREATININE, SERUM 0.79 mg/dL (0.72-1.25); EST GLOMERULAR FILTRATION RATE > 60 ML/MIN (60-); GLUCOSE 164 mg/dL (74-118); POTASSIUM 3.4 mmol/L (3.5-5.1); SODIUM 139 mmol/L (136-145)
[2017-09-05] MEDS: CLONIDINE HCL 0.1 MG TAB PO PRN (08:04)
[2017-09-05] MEDS: SILVER ANTIMICROBIAL WOUND GEL 45ML TOP SCH (08:04)
[2017-09-05] MEDS: FAMOTIDINE 20 MG TAB PO SCH (08:04)
[2017-09-05] MEDS ORDERED: AMLODIPINE BESYLATE 5 MG TAB PO SCH (09:00)
[2017-09-05] MEDS: INSULIN REGULAR, HUMAN 100 UNIT/1 ML 3ML VIAL SQ SCH ×3 (09:29→16:07)
[2017-09-05] MEDS ORDERED: ONDANSETRON HCL 4 MG ORAL DISINTEGRATING TAB PO PRN (11:45)
[2017-09-06] MEDS ORDERED: AMLODIPINE BESYLATE 5 MG TAB PO SCH (09:00)
[2017-09-06] MEDS ORDERED: AMLODIPINE BESYLATE 10 MG TAB PO SCH (09:00)
--- NOTE | 2017-09-19 05:34 | Operative Report ---
DATE OF PROCEDURE: September 04, 2017 PREOPERATIVE DIAGNOSES 1. Hydronephrosis. 2. Urinary tract infection. POSTOPERATIVE DIAGNOSES 1. Hydronephrosis. 2. Urinary tract infection. 3. Urinary retention. OPERATIONS PERFORMED 1. Cystourethroscopy with bilateral ureteral catheterization and retrograde ureteropyelography (separate procedure performed to evaluate the upper tracts in light of the hydronephrosis, as well as urinary tract infection). 2. Interpretation of retrograde ureteropyelography. 3. Supervision of fluoroscopy. No radiologist present. 4. Complicated urethral Bowman catheterization (separate procedure performed for the obvious urinary retention). ANESTHESIA: General. COMPLICATIONS: None. CLINICAL SUMMARY: Moise Tapia is a 72-year-old man with a complex medical history. Please refer to consultation dictation from the same hospitalization. Patient is brought to the operating room today to manage him in light of the fact of the hydronephrosis, as well as urinary tract infection. He is aware of the risks of bleeding, infection, injury to adjacent structures, need for additional procedures, and elects to proceed. The family is also aware of the risks of procedures and elected to proceed as well. OPERATIVE PROCEDURE IN DETAIL: Informed consent was verified. Moise Tapia was properly identified and taken to the operating room and placed on the cystoscopy table in the supine position. Anesthesia was uneventfully begun. The patient then carefully and gently repositioned in the dorsal lithotomy position with all pressure points well-padded. His genitalia were prepared and draped in the usual sterile fashion. A 22.5-Finnish cystoscope sheath with the visual obturator in place was atraumatically inserted into the patient's urethra. It was guided down the unremarkable distal urethra past a normal sphincteric region through the prostate bed, which was significant for some BPH with mild visual obstruction. We entered the patient's bladder and the bladder was drained. The bladder contained at least 1000 mL of fluid within it. Cultures were obtained. Panendoscopy of the urinary bladder revealed diffuse inflammation throughout the bladder consistent with chronic cystitis. No suspicious lesions were identified. A ureteral catheter was used to cannulate each ureter, and retrograde ureteropyelography was performed. Interpretation of retrograde ureteropyelography. Contrast was instilled in a retrograde fashion bilaterally. There was a high degree of hydroureteronephrosis with severe ureteral tortuosity bilaterally. Cephalad displaced ureteral orifices were identified. Severe J-hooking was noted. This finding is consistent with long-standing obstruction. The cystoscope was withdrawn. Bowman catheter was placed. It was irrigated to and fro to ensure it worked properly. A digital rectal examination revealed a 30 g prostate that was smooth, nonfluctuant and without any nodules. Patient was then uneventfully reversed from anesthesia and taken to the recovery room in stable condition. There were no complications to the procedure. The patient tolerated the procedure well. The likelihood and possibility of a neurogenic bladder is certainly entertained. Job#: [id number] JENNIE
== END 2017-09-05 20:52 | DRG 64 ==
LOC: ER 21:44 → ERHOLD 08-31 00:42 → IMCU 08-31 17:06 → MED/SURG3 09-03 22:13
PROVIDERS: ADMIT Internal Medicine; ATTEND Internal Medicine
PROC: BT141ZZ Fluoroscopy of Kidneys, Ureters and Bladder using Low Osmolar Contrast (ICD-10-PCS; 2017-09-04)
PROC: 0T9B80Z Drainage of Bladder with Drainage Device, Via Natural or Artificial Opening Endoscopic (ICD-10-PCS; principal; 2017-09-04 09:30)
DX: I63.8 Other cerebral infarction (principal); G93.41 Metabolic encephalopathy; L97.819 Non-pressure chronic ulcer of other part of right lower leg with unspecified severity; N13.6 Pyonephrosis; L02.213 Cutaneous abscess of chest wall; N13.8 Other obstructive and reflux uropathy; D69.6 Thrombocytopenia, unspecified; F03.90 Unspecified dementia, unspecified severity, without behavioral disturbance, psychotic disturbance, mood disturbance, and anxiety; K74.60 Unspecified cirrhosis of liver; I10 Essential (primary) hypertension; E11.9 Type 2 diabetes mellitus without complications; R07.89 Other chest pain; I83.018 Varicose veins of right lower extremity with ulcer other part of lower leg; E78.5 Hyperlipidemia, unspecified; F10.20 Alcohol dependence, uncomplicated; N50.0 Atrophy of testis; D64.9 Anemia, unspecified; E83.51 Hypocalcemia; E87.6 Hypokalemia; Z91.19 Patient's noncompliance with other medical treatment and regimen; N39.41 Urge incontinence; R31.9 Hematuria, unspecified; N40.1 Benign prostatic hyperplasia with lower urinary tract symptoms
CPT/HCPCS: 36415; 70551; 71045; 74176; 74420; 76700; 80048; 80053; 80061; 80307; 80320; 81001; 82140; 82550; 82553; 82607; 82948; 83036; 83735; 84425; 84436; 84443; 84479; 84484; 85025; 85610; 85730; 86592; 87086; 93005; 93306; 93880; 96367; 96372; 96376; 97139; 99284; J0360; J0696; J1630; J2001; J2060; J2543; J3411; J7030; J7050